=== PATIENT | female | born 1955 | race Hispanic/Latino ===

== ENCOUNTER 2023-01-12 11:51 | Emergency (ER) | payer OTHER ==
--- NOTE | 2023-01-12 12:34 | RAD REPORT ---
EXAM DESCRIPTION: CT - Head Brain Wo Cont - 01/12/2023 12:25 pm CLINICAL HISTORY: Dizziness COMPARISON: none TECHNIQUE: Computed axial tomography of the head was obtained. IV contrast was not requested. All CT scans are performed using dose optimization technique as appropriate and may include automated exposure control or mA/KV adjustment according to patient size. FINDINGS: An intracranial bleed is not seen The ventricles are normal in caliber No significant hypodense areas within the brain visualized No extra-axial fluid collection is noted. Small amount of fluid within the right maxillary sinus IMPRESSION: No acute intracranial abnormality is seen Small amount of fluid within the right maxillary sinus may indicate acute sinusitis If patient's symptoms persist MRI of the brain would be recommended
--- NOTE | 2023-01-12 12:44 | RAD REPORT ---
EXAM DESCRIPTION: Jesus Single View01/12/2023 12:30 pm CLINICAL HISTORY: Chest pain COMPARISON: none FINDINGS: The lungs appear clear of acute infiltrate. The heart is normal size IMPRESSION: No acute abnormalities displayed
[2023-01-12 12:51] LABS: Absolute Lymphocytes (CBC) 2.5 K/uL (0.7-4.9); Hematocrit 37.2 % (36.0-45.0); Lymphocytes % 37.6 % (15.3-44.8); MCV 85.9 fL (80-100); MPV 7.7 fL (7.6-11.3); RBC Red Blood Cell Count 4.34 M/uL (3.86-4.86)
[2023-01-12 13:09] LABS: Magnesium 2.3 mg/dL (1.6-2.4); Potassium 3.7 mEq/L (3.5-5.1); Troponin High Sensitivity 3.2 pg/mL (<58.9)
--- NOTE | 2023-01-12 13:15 | ER ---
Nurse's Notes [facility] Name: Sharmaine Franklin Age: 67 yrs Sex: Female : 1955 Arrival Date: 01/12/2023 Time: 11:51 Bed 8 Private MD: Diagnosis: Dizziness and giddiness;Orthostatic hypotension Presentation: 01/12 11:56 Chief complaint: Patient states: Dizziness on/off for the last 2 weeks, patient states nj1 she gets dizzy when she changes position, "take a few deep breaths and it goes away". Coronavirus screen: Vaccine status: Patient reports receiving the 2nd dose of the covid vaccine. Ebola Screen: Patient denies travel to an Ebola-affected area in the 21 days before illness onset. Initial Sepsis Screen: Does the patient meet any 2 criteria? No. Patient's initial sepsis screen is negative. Does the patient have a suspected source of infection? No. Patient's initial sepsis screen is negative. Risk Assessment: Do you want to hurt yourself or someone else? Patient reports no desire to harm self or others. Onset of symptoms was December 29, 2022. 11:56 Method Of Arrival: Ambulatory [facility] 11:56 Acuity: YANA 3 nj1 Triage Assessment: 13:19 General: Appears in no apparent distress. Behavior is calm, cooperative. Pain: Denies ap3 pain. Neuro: Level of Consciousness is awake, alert, obeys commands, Oriented to person, place, time, situation, Reports dizziness. Cardiovascular: Patient's skin is warm and dry. Respiratory: Airway is patent Respiratory effort is even, unlabored, Respiratory pattern is regular, symmetrical. Historical: - Allergies: 11:59 No Known Allergies; nj1 - Home Meds: 11:59 simvastatin 10 mg Oral tablet every evening [Active]; nj1 - PMHx: 11:59 Hypercholesterolemia; nj1 - PSHx: 11:59 Hysterectomy; nj1 - Immunization history:: Client reports receiving the 2nd dose of the Covid vaccine. - Social history:: Smoking status: Patient denies any tobacco usage or history of. Screenin:23 Abuse screen: Denies threats or abuse. Nutritional screening: No deficits noted. ap3 Tuberculosis screening: No symptoms or risk factors identified. Assessment: 13:01 Reassessment: Patient appears in no apparent distress at this time. Patient and/or vg1 family updated on plan of care and expected duration. Pain level reassessed. Patient is alert, oriented x 3, equal unlabored respirations, skin warm/dry/pink. denies dizziness at this time Patient states feeling better. Vital Signs: 11:56 BP 129 / 75; Pulse 82; Resp 18; Temp 98.9(O); Pulse Ox 98% ; Weight 64.41 kg; Height 5 nj1 ft. 2 in. ; Pain 0/10; 12:23 BP 117 / 68 Supine; sb4 12:24 BP 120 / 82 Sitting; sb4 12:24 BP 122 / 83 Standing; sb4 12:30 BP 129 / 83; Pulse 75; Resp 20; Pulse Ox 99% on R/A; vg1 13:29 BP 120 / 80; Pulse 76; Resp 16; Pulse Ox 98% on R/A; vg1 11:56 Body Mass Index 25.97 (64.41 kg, 157.48 cm) nj1 11:56 Pain Scale: Adult [facility] ED Course: 11:53 Patient arrived in ED. ts1 11:56 Ethel Castro PA-C is PHCP. sb4 11:56 Darin Villalba MD is Attending Physician. sb4 11:58 Triage completed. nj1 12:00 Arm band placed on right wrist. nj1 12:09 Jolanta Henderson, YESI is Primary Nurse. ap3 12:23 Patient has correct armband on for positive identification. Bed in low position. Call ap3 light in reach. Side rails up X 1. job coach on. Pulse ox on. NIBP on. 12:27 CT Head Brain wo Cont In Process Unspecified. EDMS 12:31 Chest Single View XRAY In Process Unspecified. EDMS 12:44 Basic Metabolic Panel Sent. mm9 12:44 CBC with Diff Sent. mm9 12:44 Magnesium Sent. mm9 12:44 Troponin High Sensitivity Sent. mm9 12:44 Initial lab(s) drawn, by me, sent to lab. EKG done, by ED staff, reviewed by Ethel Castro PA-C. Inserted saline lock: 20 gauge in left antecubital area, using aseptic technique. Blood collected. 12:45 Warm blanket given. Pillow given. Client placed on continuous cardiac and pulse mm9 oximetry monitoring. NIBP monitoring applied. 13:14 Almazan, Sharmaine, MD is Referral Physician. sb4 13:19 No provider procedures requiring assistance completed. ap3 13:29 IV discontinued, intact, bleeding controlled, No redness/swelling at site. Pressure vg1 dressing applied. Administered Medications: No medications were administered Medication: 13:19 VIS not applicable for this client. ap3 Outcome: 13:14 Discharge ordered by MD. sb4 13:29 Discharged to home ambulatory, with family. vg1 13:29 Condition: good 13:29 Discharge instructions given to patient, Instructed on discharge instructions, follow up and referral plans. Demonstrated understanding of instructions, follow-up care. 13:29 Patient left the ED. vg1 Signatures: Dispatcher [employer] EDJolanta Saldivar RN YESI ap3 Ana Cristina Baldwin RN RN vg1 Etehl Castro, PA-C PA-C sb4 Isabelle Echavarria mm9 Ann Marie Em RN RN nj1 Lucille Coleman, GURVINDER PAS ts1 Corrections: (The following items were deleted from the chart) 12:00 11:59 PSHx: None; nj1 nj1
--- NOTE | 2023-01-12 13:15 | EDPHYS ---
Physician Documentation [facility] Name: Sharmaine Franklin Age: 67 yrs Sex: Female : 1955 Arrival Date: 01/12/2023 Time: 11:51 Bed 8 Private MD: NICK Physician Darin Villalba HPI: 01/12 12:14 This 67 yrs old Female presents to ER via Ambulatory with complaints of sb4 Dizziness. 12:14 The patient presents with dizziness, feeling off balance. Onset: The symptoms/episode sb4 began/occurred 2 week(s) ago. Context:. Context: changing positions. Associated signs and symptoms: Pertinent positives: blurred vision, Pertinent negatives: abdominal pain, chest pain, confusion, diaphoresis, headache, nausea, shortness of breath, syncope, tingling. 67 year old female with history of hyperlipidemia presents with complaints of 2 weeks dizzy spells. She states that they occur typically when gets up from laying down. She denies any chest pain, shortness of breath, nausea, syncope, cardiac history. She states she can typically relieve the dizziness by taking deep breaths. Historical: - Allergies: 11:59 No Known Allergies; nj1 - Home Meds: 11:59 simvastatin 10 mg Oral tablet every evening [Active]; nj1 - PMHx: 11:59 Hypercholesterolemia; nj1 - PSHx: 11:59 Hysterectomy; nj1 - Immunization history:: Client reports receiving the 2nd dose of the Covid vaccine. - Social history:: Smoking status: Patient denies any tobacco usage or history of. ROS: 12:14 Constitutional: Negative for fever, chills, and weight loss, Eyes: Negative for injury, sb4 pain, redness, and discharge, ENT: Negative for injury, pain, and discharge, Cardiovascular: Negative for chest pain, palpitations, and edema, Respiratory: Negative for shortness of breath, cough, wheezing, and pleuritic chest pain, Abdomen/GI: Negative for abdominal pain, nausea, vomiting, diarrhea, and constipation, MS/Extremity: Negative for injury and deformity, Skin: Negative for injury, rash, and discoloration, Psych: Negative for depression, anxiety, suicide ideation, homicidal ideation, and hallucinations. 12:14 Neuro: Positive for dizziness, Negative for gait disturbance, headache, loss of consciousness, numbness, seizure activity, syncope. Exam: 12:14 Constitutional: This is a well developed, well nourished patient who is awake, alert, sb4 and in no acute distress. Head/Face: Normocephalic, atraumatic. Eyes: Extra-ocular motions intact. Periorbital areas with no swelling, redness, or edema. ENT: Mucous membranes moist. Cardiovascular: Regular rate and rhythm with a normal S1 and S2. Respiratory: Lungs have equal breath sounds bilaterally, clear to auscultation and percussion. No rales, rhonchi or wheezes noted. No increased work of breathing, no retractions or nasal flaring. Abdomen/GI: Soft, non-tender, no distension. Skin: Warm, dry with normal turgor. Normal color with no rashes, no lesions, and no evidence of cellulitis. MS/ Extremity: Pulses equal, no cyanosis. Neurovascular intact. Full, normal range of motion. Neuro: Awake and alert, GCS 15, oriented to person, place, time, and situation. Cranial nerves II-XII grossly intact. Motor strength 5/5 in all extremities. Sensory grossly intact. Cerebellar exam normal. Normal gait. Vital Signs: 11:56 BP 129 / 75; Pulse 82; Resp 18; Temp 98.9(O); Pulse Ox 98% ; Weight 64.41 kg; Height 5 nj1 ft. 2 in. ; Pain 0/10; 12:23 BP 117 / 68 Supine; sb4 12:24 BP 120 / 82 Sitting; sb4 12:24 BP 122 / 83 Standing; sb4 12:30 BP 129 / 83; Pulse 75; Resp 20; Pulse Ox 99% on R/A; vg1 13:29 BP 120 / 80; Pulse 76; Resp 16; Pulse Ox 98% on R/A; vg1 11:56 Body Mass Index 25.97 (64.41 kg, 157.48 cm) nj1 11:56 Pain Scale: Adult nj1 MDM: 11:56 Patient medically screened. sb4 12:14 Differential diagnosis: cardiac arrhythmia, CVA, generalized weakness, head injury, sb4 hyperventilation, hypovolemia, idiopathic dizziness, near-syncope, syncope, TIA, vertigo. 13:19 Data reviewed: vital signs, nurses notes, lab test result(s), cardiac enzymes, CBC, sb4 electrolytes, EKG, radiologic studies, CT scan, plain films. Data reviewed: and as a result, I will discharge patient. Consideration of Admission/Observation Escalation of care including admission/observation considered. Independent interpretation of the following test(s) in the Emergency Department EKG: See my EKG interpretation above X-Ray: My interpretation is my interpretation of the chest xray images are no consolidation, no rib fracture, no pulmonary edema. Counseling: I had a detailed discussion with the patient and/or guardian regarding: the historical points, exam findings, and any diagnostic results supporting the discharge/admit diagnosis, lab results, radiology results, to return to the emergency department if symptoms worsen or persist or if there are any questions or concerns that arise at home. 01/12 12:11 Order name: Basic Metabolic Panel; Complete Time: 13:10 sb4 01/12 12:11 Order name: CBC with Diff; Complete Time: 12:54 sb4 01/12 12:11 Order name: Magnesium; Complete Time: 13:10 sb4 01/12 12:11 Order name: Troponin High Sensitivity; Complete Time: 13:10 sb4 01/12 12:11 Order name: CT Head Brain wo Cont; Complete Time: 12:36 sb4 01/12 12:11 Order name: Chest Single View XRAY; Complete Time: 12:45 sb4 01/12 12:11 Order name: EKG; Complete Time: 12:12 sb4 01/12 12:11 Order name: Cardiac monitoring; Complete Time: 12:32 sb4 01/12 12:11 Order name: EKG - Nurse/Tech; Complete Time: 12:32 sb4 01/12 12:11 Order name: IV Saline Lock; Complete Time: 12:44 sb4 01/12 12:11 Order name: Labs collected and sent; Complete Time: 12:44 sb4 01/12 12:11 Order name: O2 Per Protocol; Complete Time: 12:20 sb4 01/12 12:11 Order name: O2 Sat Monitoring; Complete Time: 12:20 sb4 01/12 12:11 Order name: Orthostatics; Complete Time: 12:22 sb4 EC:55 Rate is 67 beats/min. Rhythm is regular, Normal Sinus Rhythm. QRS [place] is Normal. [place] sb4 interval is normal at 158 msec. QRS interval is normal at 80 msec. QT interval is normal at 402 msec. T waves are Normal. Clinical impression: Normal ECG. Interpreted by me. Reviewed by me. Administered Medications: No medications were administered Disposition Summary: 01/12/23 13:14 Discharge Ordered Location: Home sb4 Problem: an ongoing problem sb4 Symptoms: have improved sb4 Condition: Stable sb4 Diagnosis - Dizziness and giddiness sb4 - Orthostatic hypotension sb4 Followup: sb4 - With: Sharmaine Almazan MD - When: 1 week - Reason: Further diagnostic work-up, Recheck today's complaints, Re-evaluation by your physician Discharge Instructions: - Discharge Summary Sheet sb4 - Orthostatic Hypotension sb4 - Dizziness, [id number]-[id number] sb4 Forms: - Medication Reconciliation Form sb4 - Thank You Letter sb4 - Antibiotic Education sb4 - Prescription Opioid Use sb4 - [email or web address] sb4 Signatures: Dispatcher [employer] Ethel Mcclendon PA-C PA-C sb4 Ann Marie Em RN RN nj1 Corrections: (The following items were deleted from the chart) 12:00 11:59 PSHx: None; nj1 nj1
[2023-01-12 14:22] VITALS: TEMP 98.9
[2023-01-12 14:27] VITALS: BP 120/80; O2SAT 98
--- NOTE | 2023-01-14 17:16 | EKG ---
Test Date: 2023-01-12 Test Time: 12:51:27 Direct Care Counselor: AKILA MEASUREMENT RESULTS: Intervals: Rate: 67 SD: 158 QRSD: 80 QT: 402 QTc: 424 [place]: P: 69 SD: 158 QRS: 50 T: 42 INTERPRETIVE STATEMENTS: Normal sinus rhythm Normal ECG No previous ECG available for comparison Electronically Signed On 01-14-23 17:13:27 CDT by Rex Lester
== END 2023-01-12 13:29 | disposition home or self-care (01) ==
LOC: ER 11:51
DX: R42 Dizziness and giddiness (principal); I95.1 Orthostatic hypotension; E78.00 Pure hypercholesterolemia, unspecified
CPT/HCPCS: 36415; 70450; 71045; 80048; 83735; 84484; 85025; 93005; 99284

== ENCOUNTER 2023-05-08 04:30 | Emergency (ER) | payer OTHER ==
--- OUTSIDE RECORDS SUMMARY | 2023-05-08 04:40 | XMS REPORT | Continuity of Care Document ---
:[address] [facility] t Address [address] [place] [id number] Care Team Providers Name Role Phone [email or web address] Attending Clinician Unavailable [email or web address] Admitting Clinician Unavailable Problems This patient has no known problems. Allergies, Adverse Reactions, Alerts This patient has no known allergies or adverse reactions. Medications This patient has no known medications. Procedures This patient has no known procedures. Encounters Start End Encounter Admission Attending Care Care Encounter Source Date/Time Date/Time Type Type Clinicians Facility Department ID 2023-05-03 2023-05-03 Outpatient [email or web address] PRIV PRIV [id number] [facility] 00:00:00 00:00:00 diyala_S [id number] Medic al Results This patient has no known results.
--- NOTE | 2023-05-08 05:06 | EDPHYS ---
Physician Documentation [facility] Name: Sharmaine Franklin Age: 67 yrs Sex: Female : 1955 Arrival Date: 05/08/2023 Time: 04:30 Bed IW1 Private MD: ED Physician King Marshall HPI: 05/08 04:47 This 67 yrs old Female presents to ER via Unassigned with complaints of Sore sp4 Throat, laryngitis. 05:02 67-year-old female presents with acute onset of sore throat, loss of voice and cough sp4 starting 3 days ago. Patient denies fever or vomiting. Historical: - Allergies: 04:55 No Known Allergies; jj7 - PMHx: 04:55 Hypercholesterolemia; jj7 - PSHx: 04:55 hysterectomy; jj7 - Immunization history:: Adult Immunizations up to date, Client reports receiving the 2nd dose of the Covid vaccine. - Social history:: Smoking status: Patient denies any tobacco usage or history of. Patient/guardian denies using alcohol, street drugs. - Family history:: not pertinent. ROS: 05:02 Constitutional: Negative for fever, chills, and weight loss, ENT: Positive sore throat sp4 positive hoarseness positive cough 05:02 All other systems are negative, Exam: 05:02 Constitutional: This is a well developed, well nourished patient who is awake, alert, sp4 and in no acute distress. Head/Face: Normocephalic, atraumatic. Eyes: Pupils equal round and reactive to light, extra-ocular motions intact. Lids and lashes normal. Conjunctiva and sclera are not injected. Cornea within normal limits. Periorbital areas with no swelling, redness, or edema. ENT: Nares patent. No nasal discharge, no septal abnormalities noted. Tympanic membranes are normal and external auditory canals are clear. Oropharynx with diffuse posterior pharyngeal redness without significant exudate, positive hoarse voice Neck: Trachea midline, no thyromegaly or masses palpated, and no cervical lymphadenopathy. Supple, full range of motion without nuchal rigidity, or vertebral point tenderness. Chest/axilla: Normal chest wall appearance and motion. Nontender with no deformity. No lesions are appreciated. Cardiovascular: Regular rate and rhythm with a normal S1 and S2. No gallops, murmurs, or rubs. Normal PMI, no JVD. No pulse deficits. Respiratory: Lungs have equal breath sounds bilaterally, clear to auscultation and percussion. No rales, rhonchi or wheezes noted. No increased work of breathing, no retractions or nasal flaring. Abdomen/GI: Soft, non-tender, with normal bowel sounds. No distension or tympany. No guarding or rebound. No evidence of tenderness throughout. Back: No spinal tenderness. No costovertebral tenderness. Skin: Warm, dry with normal turgor. Normal color with no rashes, no lesions, and no evidence of cellulitis. MS/ Extremity: Pulses equal, no cyanosis. Neurovascular intact. Full, normal range of motion. Neuro: Awake and alert, GCS 15, oriented to person, place, time, and situation. Cranial nerves II-XII grossly intact. Motor strength 5/5 in all extremities. Sensory grossly intact. Psych: Awake, alert, with orientation to person, place and time. Behavior, mood, and affect are within normal limits Vital Signs: 04:53 BP 99 / 74; Pulse 81; Resp 20; Temp 98.2; Pulse Ox 99% ; Weight 60.78 kg; Height 0 ft. jj7 1 in. ; 04:53 Body Mass Index 52653.55 (60.78 kg, 5 cm) j7 MDM: 05:00 Patient medically screened. sp4 05:02 Differential diagnosis: bronchitis, echovirus infection, penny-hadley virus, group A sp4 strep tonsillitis, influenza. Data reviewed: vital signs, nurses notes, old medical records. ED course: Patient has some degree of laryngitis and pharyngitis. Also some signs of bronchitis. Will cover with Zithromax also with advised ibuprofen, as needed Benadryl, as needed dextromethorphan.. Administered Medications: 05:25 Drug: Dextromethorphan-Guaifenesin PO Liquid 10 mg-100 mg/5 mL 10 ml PO once Route: PO; jj7 05:28 Follow up: Response: No adverse reaction jj7 05:25 Drug: AZITHromycin PO 500 mg PO once Route: PO; j7 :28 Follow up: Response: No adverse reaction jj7 05:25 Drug: Ibuprofen PO 600 mg PO once Route: PO; jj7 05:28 Follow up: Response: No adverse reaction jj7 05:25 Drug: diphenhydrAMINE PO 25 mg PO once Route: PO; j7 05:28 Follow up: Response: No adverse reaction j7 05:25 Drug: predniSONE PO 60 mg PO once Route: PO; j7 05:28 Follow up: Response: No adverse reaction jj7 Disposition Summary: 05/08/23 05:05 Discharge Ordered Notes: Location: Home sp4 Problem: new sp4 Symptoms: have improved sp4 Condition: Stable sp4 Diagnosis - Acute laryngitis sp4 - Acute bronchitis, unspecified sp4 Followup: sp4 - With: Private Physician - When: 5 - 6 days - Reason: Recheck today's complaints Discharge Instructions: - Discharge Summary Sheet sp4 - Acute Bronchitis, Adult sp4 Forms: - Patient Portal Instructions sp4 Prescriptions: - dextromethorphan-guaifenesin 10-100 mg/5 mL Oral syrup - administer 10 milliliter ORAL route every 6 hours PRN cough; 120 milliliter; sp4 Refills: 0, Product Selection Permitted - Ibuprofen 600 mg Oral Tablet - take 1 tablet ORAL route every 6 hours As needed take with food; 30 tablet; sp4 Refills: 0, Product Selection Permitted - Zithromax Z-Jordi 250 mg Oral Tablet - take 1 tablet ORAL route as directed for 5 days Day 1 - take two (2) tablets sp4 one time. Day 2, 3, 4 , 5 take one (1) tablet once daily.; 6 tablet; Refills: 0, Product Selection Permitted Signatures: Whitney Brannon RN RN jj7 King Marshall MD MD sp4
--- NOTE | 2023-05-08 05:06 | ER ---
Nurse's Notes [facility] Name: Sharmaine Franklin Age: 67 yrs Sex: Female : 1955 Arrival Date: 05/08/2023 Time: 04:30 Bed IW1 Private MD: Diagnosis: Acute laryngitis;Acute bronchitis, unspecified Presentation: 05/08 04:53 Chief complaint: Patient states: SORE THROAT STARTED YESTERDAY AND COUGH. Coronavirus jj7 screen: cough unrelated to allergies, sore throat. Ebola Screen: No symptoms or risks identified at this time. Initial Sepsis Screen: Does the patient meet any 2 criteria? No. Patient's initial sepsis screen is negative. Does the patient have a suspected source of infection? No. Patient's initial sepsis screen is negative. Risk Assessment: Do you want to hurt yourself or someone else? Patient reports no desire to harm self or others. Onset of symptoms was May 05, 2023. 04:53 Method Of Arrival: Ambulatory j7 04:53 Acuity: YANA 4 jj7 Triage Assessment: 04:55 General: Appears in no apparent distress. uncomfortable, Behavior is calm, cooperative, jj7 appropriate for age. EENT: Reports SORE THROAT AND COUGH. Historical: - Allergies: 04:55 No Known Allergies; jj7 - PMHx: 04:55 Hypercholesterolemia; jj7 - PSHx: 04:55 hysterectomy; jj7 - Immunization history:: Adult Immunizations up to date, Client reports receiving the 2nd dose of the Covid vaccine. - Social history:: Smoking status: Patient denies any tobacco usage or history of. Patient/guardian denies using alcohol, street drugs. - Family history:: not pertinent. Screenin:59 [facility] ED Fall Risk Assessment (Adult) History of falling in the last 3 months, jj7 including since admission No falls in past 3 months (0 pts) Confusion or Disorientation No (0 pts) Intoxicated or Sedated No (0 pts) Impaired Gait No (0 pts) Mobility Assist Device Used No (0 pt) Altered Elimination No (0 pt) Score/Fall Risk Level 0 - 2 = Low Risk Oriented to surroundings, Maintained a safe environment. Abuse screen: Denies threats or abuse. Nutritional screening: No deficits noted. Tuberculosis screening: No symptoms or risk factors identified. Assessment: 04:59 Reassessment: SEE TRIAGE ASSESSMENT. Pain:. EENT: Reports. jj7 05:26 Respiratory: Airway is patent Respiratory effort is even, unlabored, Breath sounds are jj7 clear bilaterally. 05:26 EENT: Throat is clear. jj7 Vital Signs: 04:53 BP 99 / 74; Pulse 81; Resp 20; Temp 98.2; Pulse Ox 99% ; Weight 60.78 kg; Height 0 ft. jj7 1 in. ; 04:53 Body Mass Index 09702.55 (60.78 kg, 5 cm) jj7 ED Course: 04:35 Patient arrived in ED. gm2 04:47 King Marshall MD is Attending Physician. sp4 04:55 Triage completed. jj7 04:55 Arm band placed on right wrist. jj7 05:26 No provider procedures requiring assistance completed. Patient did not have IV access jj7 during this emergency room visit. 05:27 Patient has correct armband on for positive identification. Provided Education on: jj7 ANTIBIOTIC PURPOSE. Administered Medications: 05:25 Drug: Dextromethorphan-Guaifenesin PO Liquid 10 mg-100 mg/5 mL 10 ml PO once Route: PO; jj7 05:28 Follow up: Response: No adverse reaction jj7 05:25 Drug: AZITHromycin PO 500 mg PO once Route: PO; jj7 05:28 Follow up: Response: No adverse reaction jj7 05:25 Drug: Ibuprofen PO 600 mg PO once Route: PO; jj7 05:28 Follow up: Response: No adverse reaction jj7 05:25 Drug: diphenhydrAMINE PO 25 mg PO once Route: PO; jj7 05:28 Follow up: Response: No adverse reaction jj7 05:25 Drug: predniSONE PO 60 mg PO once Route: PO; jj7 05:28 Follow up: Response: No adverse reaction jj7 Medication: 04:59 VIS not applicable for this client. jj7 Outcome: 05:05 Discharge ordered by . sp4 05:26 Discharged to home ambulatory, jj7 05:26 Condition: good 05:26 Discharge instructions given to patient, Instructed on discharge instructions, medication usage, Demonstrated understanding of instructions, medications, Prescriptions given X 2, 05:27 Patient left the ED. jj7 Signatures: Whitney Brannon RN RN jj7 King Marshall MD MD sp4 Mariia Ann 2
[2023-05-08 05:32] VITALS: BP 99/74; TEMP 98.2; O2SAT 99
[2023-05-08] MEDS ORDERED: predniSONE 20 MG TAB ONE (05:34)
[2023-05-08] MEDS ORDERED: AZITHROMYCIN 250 MG TAB ONE (05:34)
[2023-05-08] MEDS ORDERED: DIPHENHYDRAMINE 25 MG TAB/CAP ONE (05:34)
[2023-05-08] MEDS ORDERED: IBUPROFEN 200 MG TAB PO ONE (05:34)
[2023-05-08] MEDS ORDERED: GUAIFENESIN/DM 5 ML UCUP ONE (05:35)
== END 2023-05-08 05:27 | disposition home or self-care (01) ==
LOC: ER 04:30
DX: J20.9 Acute bronchitis, unspecified (principal)
CPT/HCPCS: 99283; J7512

== ENCOUNTER → 2023-09-25 | Day surgery (SDC) | payer OTHER ==
--- NOTE | 2023-09-20 09:25 | RAD REPORT ---
EXAM DESCRIPTION: Jesus Paulino (2 Views)09/20/2023 9:16 am CLINICAL HISTORY: Preop for knee surgery COMPARISON: 2022 FINDINGS: The lungs appear clear of acute infiltrate. The heart is normal size IMPRESSION: No acute abnormalities displayed
[2023-09-20 09:35] LABS: PT Prothrombin Time 10.6 SECONDS (9.5-12.5); Protime INR 0.96
[2023-09-20 09:39] LABS: Anion Gap 5.8 mEq/L (5.0-15.0); Potassium 3.8 mEq/L (3.5-5.1)
[2023-09-20 09:40] LABS: Absolute Eosinophils 0.2 K/uL (0-0.5); Absolute Lymphocytes (CBC) 2.5 K/uL (0.7-4.9); Absolute Monocytes 0.3 K/uL (0.1-1.3); Basophils % 0.7 % (0-1.3); Eosinophils % 2.5 % (0-4.4); Hemoglobin 12.6 g/dL (12.0-15.0); Lymphocytes % 41.5 % (15.3-44.8); MCH 28.8 pg (27.0-35.0); MCHC 33.2 g/dL (32.0-36.0); MCV 86.7 fL (80-100); Monocytes % 4.6 % (3.3-12.3); Neutrophils % 50.7 % (41.7-73.7); Nucleated Red Blood Cells % 0.1 % (0-0); Platelets 285 thou/uL (152-406); RBC Red Blood Cell Count 4.37 M/uL (3.86-4.86)
--- NOTE | 2023-09-20 17:20 | EKG ---
Test Date: 2023-09-20 Test Time: 09:06:33 [employer] Dough Mixer: LEANDRO MEASUREMENT RESULTS: Intervals: Rate: 71 IL: 154 QRSD: 76 QT: 396 QTc: 430 [place]: P: 60 IL: 154 QRS: 18 T: 32 INTERPRETIVE STATEMENTS: Normal sinus rhythm Low voltage QRS Borderline ECG Compared to ECG 01/12/2023 12:51:27 Low QRS voltage now present Electronically Signed On 09-20-23 17:19:43 CDT by Rex Lester
[~2023-09-25] MED LIST: FENTANYL CITR 100 MCG/2 ML ONE; KETOROLAC 30 MG/ML INJ ONE; LIDOCAINE 2% MPF 5 ML VIAL ONE; MIDAZOLAM HCL 2 MG/2 ML INJ ONE; NS 0.9% VIAL 10 ML ONE; ONDANSETRON 4 MG/2 ML VIAL ONE; Phenylephrine HCl 10 MG/ML 1 ML VIAL ONE; dexAMETHasone 10 MG/ML VIAL ONE; propofoL 200 MG/20 ML VIAL IV ONE
[2023-09-25] MEDS: Ringers Lactate 1,000 ML IV ONE (07:20)
[2023-09-25] MEDS: CEFAZOLIN SODIUM 1 GM/VIAL ONE (08:03)
[2023-09-25] MEDS: BUPIVACAINE 0.25% PF 30 ML VIAL ONE (08:50)
--- NOTE | 2023-09-25 09:33 | P.BOP ---
Preoperative diagnosis: right knee medial meniscus tear Postoperative diagnosis: same Primary procedure: right knee arthroscopic partial medial meniscectomy Sluice Tender: NONE,NONE Estimated blood loss: 3 cc Specimen: none Findings: see dictation Anesthesia: General Complications: None Implants: none Fluids & blood products: per anesthesia record; TT: 32 mins @ 250 mmHg Transferred to: Recovery Room Condition: Good
[2023-09-25] MEDS: ONDANSETRON 4 MG/2 ML VIAL ONE (09:38)
--- NOTE | 2023-09-25 10:43 | OP ---
Date of Procedure: 09/25/2023 Surgeon: Uday Parks MD Preoperative Diagnosis: Right knee medial meniscus tear. Postoperative Diagnosis: Right knee medial meniscus tear. Procedure Performed: Right knee arthroscopic partial medial meniscectomy. Anesthesia: General, LMA. Fluids: Per Anesthesia record. Estimated Blood Loss: 3 cc. Complications: None. Implants: None. Tourniquet Time: 32 minutes at 250 mmHg. Indication For Procedure: Sharmaine is a 68-year-old female who presented my clinic with signs, sympt oms, and MRI findings consistent with right knee medial meniscus tear. The patient had significant p ain and symptoms that interfere with her activities of daily living. I discussed the patient at [facility] risks, benefits associated with operative and nonoperative treatment measures. She expressed unde rstanding and elected to proceed with operative treatment. Description Of Procedure: After informed consent was obtained, the patient was identified in the pre operative holding area. Right lower extremity was marked. The patient was then brought back to the operating room, transferred the operative table in supine fashion, placed under general LMA anesthesi a. The right lower extremity was then prepped and draped in usual sterile fashion. A time-out was i nitiated. Correct patient and procedure were confirmed and identified. The patient did receive preo perative prophylactic antibiotics. The right lower extremity was exsanguinated using an Esmarch. Th e tourniquet was inflated to 250 mmHg. Standard anteromedial and anterolateral portals were created. The arthroscope was brought into the anterolateral portal. Diagnostic arthroscopy was performed. There was no significant chondromalacia noted within the patellofemoral joint. The arthroscope was t hen brought out the medial and lateral gutters. There were no loose bodies found in the gutters. Th e arthroscope was then brought in the medial compartment. The patient was noted to have a complex te ar of the posterior horn and body of the medial meniscus. Partial medial meniscectomy was performed using meniscal biters and arthroscopic shaver to smooth meniscal orders. 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 The arthroscope was then brought out o f the intercondylar notch. The patient was noted to have intact ACL and PCL, which were stable to pr obe. The arthroscope was then brought to the lateral compartment. The patient was noted to have tal ingris cartilage of the lateral femoral condyle, lateral tibial plateau without significant lateral me niscus tear. Arthroscopic instruments were then removed without complication. Wounds were then irri gated thoroughly with normal saline. Skin was approximated using 4-0 Monocryl. Sterile dressings we re applied. Tourniquet was let down. The patient was awakened and transferred to PACU in stable con dition. Postoperative Plan: The patient will be weightbearing as tolerated. She will begin physical therapy next week for post-meniscectomy protocol. She will follow up in clinic in 1 week for wound check. CV/MODL Voice ID: [id number] Report ID: [id number]
[2023-09-25 10:45] VITALS: BP 125/78; TEMP 97.3; O2SAT 96
== END ==
LOC: OR 07:01
PROVIDERS: ATTEND Orthopaedic Surgery Sports Medicine
PROC: 0SBC4ZZ Excision of Right Knee Joint, Percutaneous Endoscopic Approach (ICD-10-PCS; principal; 2023-09-25 08:00)
DX: S83.241A Other tear of medial meniscus, current injury, right knee, initial encounter (principal)
CPT/HCPCS: 93005; 85025; 80048; 36415; 85610; 85730; 71046; 29881; A4216 ×2; J2704; J2371; J2001; J2250; J3010; J1100; J2405 ×2; J7120; J0690

== ENCOUNTER 2024-03-07 12:56 | Emergency (ER) | payer OTHER ==
--- OUTSIDE RECORDS SUMMARY | 2024-03-07 13:00 | XMS REPORT | Continuity of Care Document ---
Author Name Unknown Address [address] [place] [address] [facility] Address [address] [place] [address] Care Team Providers Care Plaster Block Layer Name Role Phone Zay Valdivia DO Primary Care Physician + Zay Valdivia Attending Clinician Unavailable MARINO SIFUENTES Attending Clinician Unavail able Selpavant DPMarino Moulton Attending Clinician [phone] [email or web address] Attending Clinician Unavaila ble [email or web address] Admitting Clinician Unavaila ble Payers Payer Name Policy Type Policy Number Effective Date Expiration Date Source MEDICARE PART A AND B Medicare [id number] 2024 00:00:00 [employer] SENIOR SUPPLEMENT Supp [id number] 2024 00:00:00 [employer] SENIOR SUPPLEMENT Supp [id number] 2023 00:00:00 [employer] Senior Supplemental 53 [id number] 2020 00:00:00 [facility] Problems Condition Name Condition Details Condition Category Status Onset Date Resolution Date Last Treatment Date Treating Clinician Comments Source [id number] Overweight (BMI 25.0-29.9) Problem [facility] [id number] Iron deficiency anemia, unspecifie d iron deficiency anemia type Problem [facility] Pure hyperchole sterolemia Pure hyperchole sterolemia Problem [facility] [id number] Left hip pain Problem [facility] [id number] Prediabete s Problem [facility] [id number] Mixed hyperlipid emia Problem [facility] [id number] Tear of right rotator cuff, unspecifie d tear extent, unspecifie d whether traumatic Problem [facility] [id number] Insulin resistance Problem [facility] [id number] Right thigh pain Problem [facility] Allergies, Adverse Reactions, Alerts Allergy Name Allergy Type Status Severity Reaction(s) Onset Date Inactive Date Treating Clinician Comments Source NO KNOWN ALLERGIE S SYSTEMIC Active MHEOUT NO KNOWN ALLERGIE S SYSTEMIC Active MHEOUT NO KNOWN ALLERGIE S SYSTEMIC Active MHEOUT NO KNOWN ALLERGIE S SYSTEMIC Active MHEOUT NO KNOWN ALLERGIE S SYSTEMIC Active MHEOUT ALLERGIE S NOT ON FILE SYSTEMIC Active MHEOUT ALLERGIE S NOT ON FILE SYSTEMIC Active MHEOUT ALLERGIE S NOT ON FILE SYSTEMIC Active MHEOUT NO KNOWN ALLERGIE S SYSTEMIC Active MHEOUT NO KNOWN ALLERGIE S SYSTEMIC Active MHEOUT NO KNOWN ALLERGIE S SYSTEMIC Active MHEOUT NO KNOWN ALLERGIE S SYSTEMIC Active MHEOUT NO KNOWN ALLERGIE S SYSTEMIC Active MHEOUT NO KNOWN ALLERGIE S SYSTEMIC Active MHEOUT Social History Social Habit Start Date Stop Date Quantity Comments Source Gender identity 2023-09-29 14:29:11 Identifies as female gender (finding) [facility] History of Tobacco Use [facility] Sex Assigned At [facility] Sexual orientation [facility] Smoking Status Start Date Stop Date Source Tobacco smoking consumption unknown [facility] Never Smoker [facility] Medications Ordered Medication Name Filled Medication Name Start Date Stop Date Current Medication? Ordering Clinician Indication Dosage Frequency Signature (SIG) Comments Components Source B-12 1000 MCG B-12 1000 MCG No B-12 1000 MCG Simvastatin 5 MG Simvastatin 5 MG No 1{table t_in_th e_eveni ng} Simvastati n 5 MG Zinc 30 MG Zinc 30 MG No 1{ capsu le} QD Zinc 30 MG Centrum Silver - Centrum Silver - No Centrum Silver - Probiotic b10/ x4 Probiotic b10/ x4 No 1{capsu le} QD Probiotic b10/ x4 Fish Oil 1200 MG Fish Oil 1200 MG No 1{capsu le} QD Fish Oil 1200 MG Immunizations Ordered Immunization Name Filled Immunization Name Date Status Comments Source Comirnaty COVID 19 Vaccine Comirnaty COVID 19 Vaccine Unknown Completed [facility] Arexvy Arexvy Unknown Completed [facility] Prevnar 20 (PCV20) Prevnar 20 (PCV20) Unknown Completed [facility] Fluad (aIIV4) - SDS - 0.5mL Fluad (aIIV4) - SDS - 0.5mL Unknown Completed [facility] FluAD FluAD Unknown Completed [facility] Flucelvax (ccIIV4) - SDS - 0.5mL Flucelvax (ccIIV4) - SDS - 0.5mL Unknown Completed [facility] ProQuad (MMRV) ProQuad (MMRV) Unknown [facility] Com[facility]naty COVID 19 Vaccine Unknown Completed [facility] Arexvy Arexvy Unknown Completed [facility] Prevnar 20 (PCV20) Prevnar 20 (PCV20) Unknown Completed [facility] Fluad (aIIV4) - SDS - 0.5mL Fluad (aIIV4) - SDS - 0.5mL Unknown Completed [facility] FluAD FluAD Unknown Completed [facility] Flucelvax (ccIIV4) - SDS - 0.5mL Flucelvax (ccIIV4) - SDS - 0.5mL Unknown Completed [facility] ProQuad (MMRV) ProQuad (MMRV) Unknown [facility] Comirnaty COVID 19 Vaccine Unknown Completed [facility] Arexvy Arexvy Unknown Completed [facility] Prevnar 20 (PCV20) Prevnar 20 (PCV20) Unknown Completed [facility] Fluad (aIIV4) - SDS - 0.5mL Fluad (aIIV4) - SDS - 0.5mL Unknown Completed [facility] FluAD FluAD Unknown Completed [facility] Flucelvax (ccIIV4) - SDS - 0.5mL Flucelvax (ccIIV4) - SDS - 0.5mL Unknown Completed [facility] ProQuad (MMRV) ProQuad (MMRV) Unknown Completed [facility] Comirnat COVID 19 Vaccine Comirnaty COVID 19 Vaccine Unknown Completed [facility] Arexvy Arexvy Unknown Completed [facility] Prevnar 20 (PCV20) Prevnar 20 (PCV20) Unknown Completed [facility] Fluad (aIIV4) - SDS - 0.5mL Fluad (aIIV4) - SDS - 0.5mL Unknown Completed [facility] FluAD FluAD Unknown Completed [facility] Flucelvax (ccIIV4) - SDS - 0.5mL Flucelvax (ccIIV4) - SDS - 0.5mL Unknown Completed [facility] ProQuad (MMRV) ProQuad (MMRV) Unknown Completed [facility] Comirnaty COVID 19 Vaccine Comirnaty COVID 19 Vaccine Unknown Completed [facility] Arexvy Arexvy Unknown Completed [facility] Prevnar 20 (PCV20) Prevnar 20 (PCV20) Unknown Completed [facility] Fluad (aIIV4) - SDS - 0.5mL Fluad (aIIV4) - SDS - 0.5mL Unknown Completed [facility] FluAD FluAD Unknown Completed [facility] Flucelvax (ccIIV4) - SDS - 0.5mL Flucelvax (ccIIV4) - SDS - 0.5mL Unknown Completed [facility] ProQuad (MMRV) ProQuad (MMRV) Unknown Completed [facility] Comirnaty COVID 19 Vaccine Comirnaty COVID 19 Vaccine Unknown Completed [facility] Arexvy Arexvy Unknown Completed [facility] Prevnar 20 (PCV20) Prevnar 20 (PCV20) Unknown Completed [facility] Fluad (aIIV4) - SDS - 0.5mL Fluad (aIIV4) - SDS - 0.5mL Unknown Completed [facility] FluAD FluAD Unknown Completed [facility] Flucelvax (ccIIV4) - SDS - 0.5mL Flucelvax (ccIIV4) - SDS - 0.5mL Unknown Completed [facility] ProQuad (MMRV) ProQuad (MMRV) Unknown Completed [facility] Comirnaty COVID 19 Vaccine Comirnaty COVID 19 Vaccine Unknown Completed [facility] Arexvy Arexvy Unknown Completed [facility] Prevnar 20 (PCV20) Prevnar 20 (PCV20) Unknown Completed [facility] Fluad (aIIV4) - SDS - 0.5mL Fluad (aIIV4) - SDS - 0.5mL Unknown Completed [facility] FluAD FluAD Unknown Completed [facility] Flucelvax (ccIIV4) - SDS - 0.5mL Flucelvax (ccIIV4) - SDS - 0.5mL Unknown Completed [facility] ProQuad (MMRV) ProQuad (MMRV) Unknown Completed [facility] Comirnaty COVID 19 Vaccine Comirnaty COVID 19 Vaccine Unknown Completed [facility] Arexvy Arexvy Unknown Completed [facility] Prevnar 20 (PCV20) Prevnar 20 (PCV20) Unknown Completed [facility] Fluad (aIIV4) - SDS - 0.5mL Fluad (aIIV4) - SDS - 0.5mL Unknown Completed [facility] FluAD FluAD Unknown Completed [facility] Flucelvax (ccIIV4) - SDS - 0.5mL Flucelvax (ccIIV4) - SDS - 0.5mL Unknown Completed [facility] ProQuad (MMRV) ProQuad (MMRV) Unknown Completed [facility] Comirnaty COVID 19 Vaccine Comirnaty COVID 19 Vaccine Unknown Completed [facility] Arexvy Arexvy Unknown Completed [facility] Prevnar 20 (PCV20) Prevnar 20 (PCV20) Unknown Completed [facility] Fluad (aIIV4) - SDS - 0.5mL Fluad (aIIV4) - SDS - 0.5mL Unknown Completed [facility] FluAD FluAD Unknown Completed [facility] Flucelvax (ccIIV4) - SDS - 0.5mL Flucelvax (ccIIV4) - SDS - 0.5mL Unknown Completed [facility] ProQuad (MMRV) ProQuad (MMRV) Unknown Completed [facility] Vital Signs Vital Name Observation Time Observation Value Comments S ource height 2024-02-04 09:15:00 61 [in_i] Commo n [facility] weight 2024-02-04 09:15:00 142 [lb_av] Comm on [facility] temperature 2024-02-04 09:15:00 98.0 [degF] Com mon [facility] bmi 2024-02-04 09:15:00 26.83 kg/m2 Comm on [facility] blood pressure systolic 2024-02-04 09:15:00 134 mm[Hg] Common [facility] blood pressure diastolic 2024-02-04 09:15:00 74 mm[Hg] [facility] height 2023-12-24 10:15:00 61 [in_i] Commo n [facility] weight 2023-12-24 10:15:00 142.2 [lb_av] Co mmon [facility] temperature 2023-12-24 10:15:00 98.2 [degF] Com mon [facility] bmi 2023-12-24 10:15:00 26.87 kg/m2 Comm on [facility] blood pressure systolic 2023-12-24 10:15:00 136 mm[Hg] [facility] blood pressure diastolic 2023-12-24 10:15:00 67 mm[Hg] Common [facility] height 2023-11-14 13:30:00 61 [in_i] Commo n [facility] weight 2023-11-14 13:30:00 135 [lb_av] Comm on [facility] bmi 2023-11-14 13:30:00 25.51 kg/m2 Comm on [facility] blood pressure systolic 2023-11-14 13:30:00 126 mm[Hg] [facility] blood pressure diastolic 2023-11-14 13:30:00 76 mm[Hg] [facility] height 2023-10-03 09:00:00 61 [in_i] Commo n [facility] weight 2023-10-03 09:00:00 136 [lb_av] Comm on [facility] bmi 2023-10-03 09:00:00 25.69 kg/m2 Comm on [facility] blood pressure systolic 2023-10-03 09:00:00 126 mm[Hg] [facility] blood pressure diastolic 2023-10-03 09:00:00 80 mm[Hg] [facility] height 2023-09-19 09:30:00 61 [in_i] Commo n [facility] weight 2023-09-19 09:30:00 136 [lb_av] Comm on [facility] bmi 2023-09-19 09:30:00 25.69 kg/m2 Comm on [facility] blood pressure systolic 2023-09-19 09:30:00 126 mm[Hg] [facility] blood pressure diastolic 2023-09-19 09:30:00 82 mm[Hg] Common [facility] height 2023-09-16 10:45:00 61 [in_i] Commo n [facility] weight 2023-09-16 10:45:00 136 [lb_av] Comm on [facility] temperature 2023-09-16 10:45:00 98.2 [degF] Com mon [facility] bmi 2023-09-16 10:45:00 25.69 kg/m2 Comm on [facility] blood pressure systolic 2023-09-16 10:45:00 126 mm[Hg] [facility] blood pressure diastolic 2023-09-16 10:45:00 82 mm[Hg] Common [facility] height 2023-09-12 08:30:00 61 [in_i] Commo n [facility] weight 2023-09-12 08:30:00 136.0 [lb_av] Co mmon [facility] temperature 2023-09-12 08:30:00 97.9 [degF] Com mon [facility] bmi 2023-09-12 08:30:00 25.69 kg/m2 Comm on [facility] oximetry 2023-09-12 08:30:00 99 % Commo n [facility] respiratory rate 2023-09-12 08:30:00 18 /min Common [facility] blood pressure systolic 2023-09-12 08:30:00 130 mm[Hg] [facility] blood pressure diastolic 2023-09-12 08:30:00 68 mm[Hg] [facility] height 2023-09-12 08:30:00 61 [in_i] Commo n [facility] weight 2023-09-12 08:30:00 136 [lb_av] Comm on [facility] temperature 2023-09-12 08:30:00 97.9 [degF] Com mon [facility] bmi 2023-09-12 08:30:00 25.69 kg/m2 Comm on [facility] oximetry 2023-09-12 08:30:00 99 % Commo n [facility] respiratory rate 2023-09-12 08:30:00 18 /min [facility] blood pressure systolic 2023-09-12 08:30:00 130 mm[Hg] [facility] blood pressure diastolic 2023-09-12 08:30:00 68 mm[Hg] [facility] Encounters Start Date/Time End Date/Time Encounter Type Admission Type Attending Clinicians Care Facility Care Department Encounter ID Source 2023-09-17 14:31:02 [facility] [id number] [facility] 2023-09-12 08:32:01 [facility] [id number] [facility] 2024-03-04 09:40:24 2024-03-04 10:36:01 Outpatient Elective MARINO SIFUENTES MHEOUT MHEOUT [id number] MHEOUT 2024-03-04 09:40:00 2024-03-04 10:36:01 Office Visit Marino Sifuentes [facility] [id number] Yelena Newell [facility] 2024-02-05 09:17:04 2024-02-05 10:51:20 Outpatient Elective SELBST, MARINO MHEOUT MHEOUT [id number] MHEOUT 2024-02-05 09:30:00 2024-02-05 09:40:00 Office Visit Selbst, Marino Mccall [facility] [id number] [facility]:00:00 2024-02-04 00:00:00 OFFICE VISIT ESTAB PT LEVEL 3 STLMLC STLMLC [id number] [facility] 2024-01-22 10:08:39 2024-01-22 11:25:53 [facility] [id number] EOUT 2024-01-22 10:00:00 2024-01-22 10:10:00 Office Visit Selbst, Marinojohnson Mccall [facility] [id number] Yelena Newell [facility] 2024-01-06 11:38:21 2024-01-06 12:21:17 Outpatient Elective [facility]BST[facility] [id number] EOUT 2024-01-06 11:10:00 2024-01-06 11:20:00 Consult Selbst, Marino Cal [facility] [id number] [facility] 2023-12-24 00:00:00 2023-12-24 00:00:00 (PO) Post Op STLMLC STLMLC [id number] [facility] 2023-12-16 00:00:00 2023-12-16 00:00:00 (TEL) STLMLC STLMLC [id number] [facility] 2023-11-27 00:00:00 2023-11-27 00:00:00 (TEL) STLMLC STLMLC [id number] [facility] 2023-11-14 00:00:00 2023-11-14 00:00:00 NON-BILLAB LE VISIT STLMLC STLC [id number] [facility] 2023-10-29 00:00:00 2023-10-29 00:00:00 (TEL) STLMLC STLC [id number] [facility] 2023-10-03 00:00:00 2023-10-03 00:00:00 NON-BILLAB LE VISIT STLC STLC [id number] [facility] 2023-09-24 00:00:00 2023-09-24 00:00:00 (TEL) STLC STLC [id number] [facility] 2023-09-19 00:00:00 2023-09-19 00:00:00 OFFICE VISIT ESTAB PT LEVEL 4 STLMLC STLMLC [id number] [facility] 2023-09-16 00:00:00 2023-09-16 00:00:00 NON-BILLAB LE VISIT STLMLC STLC [id number] [facility] 2023-09-12 00:00:00 2023-09-12 00:00:00 OFFICE VISIT ESTAB PT LEVEL 4 STLMLC STLC [id number] [facility] 2023-09-12 00:00:00 2023-09-12 00:00:00 SUB ANNUAL MCR WELLNESS VISIT STLC STLC [id number] [facility] 2023-05-03 00:00:00 2023-05-03 00:00:00 Outpatient GC_GCBZW_Ka maggie_S PRIV PRIV [id number] [facility] Results Test Description Test Time Test Comments Results Result Co mments Source MRI Shoulder Rt Wo Cont MRI Shoulder Rt Wo Cont Notes Upcoming Encounters Date/Time Note Provider Source 2024-03-04 10:37:43 Marino Sifuentes, DP - 03/04/2024 9:40 AM CDT CHIEF COMPLAINT: ARTHRITIS, RIGHT ANKLE ( MILD) ANKLE SPRAIN, RIGHT HISTORY OF PRESENT ILLNESS: Patient returns for right ankle pain evaluation Patient states pain improving with ankle brace and reduced activity Patient denies infection, injury, wounds since the previous exam Patient states pain currently rated 0/10 on palpation of intervention, right lateral ankle --- Patient states recently underwent right knee surgery, September 25, 2023 Patient states she had been conducting physical therapy and may have sprained her ankle, approximately December 15, 2023 Patient unable to recall the exact mechanism of injury or the event to cause the specific pain in the right lateral ankle 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 and has developed chronic lateral ankle instability when walking even on flat surfaces Patient states pain is currently rated 4/10 on palpation, RIGHT lateral ankle OBJECTIVE: PHYSICAL EXAM OF THE LOWER EXTREMITY VASCULAR: (-) edema, lateral ankle (-) ecchymosis, lateral ankle (-) erythema Dorsal pedis pulse, graded 2/4; bilateral Posterior tibial pulse, graded 2/4; bilateral Capillary Refill time: within normal limits; bilateral (-) varicosities (+) pedal hair growth NEUROLOGICAL: (+) sensation with 5.07 [place] Natalio monofilament examination to the most distal lower extremity (-) tinel's sign (-) clonus present DERMATOLOGICAL: (-) open wounds (-) signs of soft tissue infection (-) ischemic tissue (-) abscess (-) other primary or secondary lesions (+) normal temperature when compared to contralateral limb (+) normal color, tugor, and elasticity MUSCULOSKELETAL: (-) anterior draw sign with dimpling (-) noted when compared to the contralateral limb (-) pain on palpation to the anterior talo-fibular ligament, during stress by plantar flexion and inversion of the foot (-) pain on palpation to the the calcaneal fibular ligament, during stress by inversion of the rearfoot (-) pain on palpation to the posterior talo-fibular ligament, with and without stress (-) pain on palpation to the proximal or distal fibula (-) pain on palpation along the peroneal tendons, with and without resistance (-) pain on palpation to the 5th metatarsal base, anterior calcaneal tuberosity 5/5 muscle strength to extrinsic pedal muscle groups (-) evidence of compartment syndrome (-) evidence of deep vein thrombosis X-rays right ankle 01/06/2024: (-) Fracture, (-) dislocation, (-) osteochondral defect, (-) arthritis MRI right ankle 01/29/2024: (-) Ligament/tendon injury (+) mild degenerative arthritis ASSESSMENT: Arthritis, right ankle PLAN: - Extensive visit discussing possible pedal complications including (but not limited to) arthritis and reoccurring injury with possible fracture - Pain - well controlled with [id number] NSAIDs - Cast - patient defers since unable to tolerate following recent knee surgery - X-rays - reviewed - MRI -Reviewed - Weight bearing - as tolerated with ankle brace since unable to tolerate boot following recent knee surgery, DISPENSED 01/06/2024 - physical therapy - patient currently defers, but may consider restarting at patient request - Return 2 weeks AFTER MARCH[employer] AT [email or web address] TO CONSIDER RESTARTING PHYSICAL THERAPY Patient advised to report to my clinic or the emergency room immediately with any questions or concerns.Patient Instructions:Discussion: A detailed discussion was provided to the patient with specific reference to etiology, pathology, alternate treatment options, and prognosis. All risks and complications (including side effects) with each treatment/medication alternative were outlined in detail including but not limited to: Pain, swelling, numbness,loss of function, loss of limb, bleeding, hematoma, scarring, failure to relieve condition, surgery, additional/revisional surgery, reflex sympathetic dystrophy, complex regional pain syndrome, reoccurrence of deformity, joint stiffness, flail toe, bone and/or soft tissue infection, blood clots, pulmonary embolism, possible ,delayed or non-healing. X-rays, graphs and drawings were all used to assist with patient comprehension when appropriate. All patients questions were answered and stated they fully understood. No guarantee as to results or outcome of treatment was made. I have discussed with the patient or legally responsible person prior to obtaining consent: the risks, potential benefits and drawbacks, significant alternatives, potential for problems related to recuperation, likelihood of success, and possible results of non-treatment, and the patient or the legally responsible person has agreed to proceed. [facility] Due Date Last Done Comments CT Colonography 1955 Colonoscopy 1955 Colorectal Cancer Screening 1955 FIT-DNA 1955 FIT 1955 FOBT 1955 Medicare Annual Wellness (AWV) 1955 Sigmoidoscopy 1955 DTaP/Tdap/Td Vaccines (1 - Tdap) 1974 Mammogram 1995 Zoster Vaccines (1 of 2) 2005 Respiratory Syncytial Virus (RSV) or >=60 (1 - 1-dose 60+ series) 2015 Pneumococcal Vaccine: 65+ Ye ars (1 of 1 - PCV) 2020 Influenza Vaccine (#1) 2024 HIB Vaccines Aged Out No longer eligi ble based on patient's age to complete this topic HPV Vaccines Aged Out No longer eligi ble based on patient's age to complete this topic Hepatitis A Vaccines Aged Out No long er eligible based on patient's age to complete this topic Hepatitis B Vaccines Aged Out No long er eligible based on patient's age to complete this topic IPV Vaccines Aged Out No longer eligi ble based on patient's age to complete this topic Meningococcal Vaccine Aged Out No julio myesha eligible based on patient's age to complete this topic Rotavirus Vaccines Aged Out No longer eligible based on patient's age to complete this topic [id number] 10:37:43 Diagnosis Abnormal foot finding - Prim myron [id number] 10:37:43 [place] [id number] 10:37:43* Marino Sifuentes DPM - 03/04/2024 9:40 AM CDT CHIEF COMPLAINT: ARTHRITIS, RIGHT ANKLE ( MILD) ANKLE SPRAIN, RIGHT HISTORY OF PRESENT ILLNESS: Patient returns for right ankle pain evaluation Patient states pain improving with ankle brace and reduced activity Patient denies infection, injury, wounds since the previous exam Patient states pain currently rated 0/10 on palpation of intervention, right lateral ankle --- Patient states recently underwent right knee surgery, September 25, 2023 Patient states she had been conducting physical therapy and may have sprained her ankle, approximately December 15, 2023 Patient unable to recall the exact mechanism of injury or the event to cause the specific pain in the right lateral ankle 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 and has developed chronic lateral ankle instability when walking even on flat surfaces Patient states pain is currently rated 4/10 on palpation, RIGHT lateral ankle OBJECTIVE: PHYSICAL EXAM OF THE LOWER EXTREMITY VASCULAR: (-) edema, lateral ankle (-) ecchymosis, lateral ankle (-) erythema Dorsal pedis pulse, graded 2/4; bilateral Posterior tibial pulse, graded 2/4; bilateral Capillary Refill time: within normal limits; bilateral (-) varicosities (+) pedal hair growth NEUROLOGICAL: (+) sensation with 5.07 [place] Natalio monofilament examination to the most distal lower extremity (-) tinel's sign (-) clonus present DERMATOLOGICAL: (-) open wounds (-) signs of soft tissue infection (-) ischemic tissue (-) abscess (-) other primary or secondary lesions (+) normal temperature when compared to contralateral limb (+) normal color, tugor, and elasticity MUSCULOSKELETAL: (-) anterior draw sign with dimpling (-) noted when compared to the contralateral limb (-) pain on palpation to the anterior talo-fibular ligament, during stress by plantar flexion and inversion of the foot (-) pain on palpation to the the calcaneal fibular ligament, during stress by inversion of the rearfoot (-) pain on palpation to the posterior talo-fibular ligament, with and without stress (-) pain on palpation to the proximal or distal fibula (-) pain on palpation along the peroneal tendons, with and without resistance (-) pain on palpation to the 5th metatarsal base, anterior calcaneal tuberosity 5/5 muscle strength to extrinsic pedal muscle groups (-) evidence of compartment syndrome (-) evidence of deep vein thrombosis X-rays right ankle 01/06/2024: (-) Fracture, (-) dislocation, (-) osteochondral defect, (-) arthritis MRI right ankle 01/29/2024: (-) Ligament/tendon injury (+) mild degenerative arthritis ASSESSMENT: Arthritis, right ankle PLAN: - Extensive visit discussing possible pedal complications including (but not limited to) arthritis and reoccurring injury with possible fracture - Pain - well controlled with asol-yqe-eqoazkc NSAIDs - Cast - patient defers since unable to tolerate following recent knee surgery - X-rays - reviewed - MRI -Reviewed - Weight bearing - as tolerated with ankle brace since unable to tolerate boot following recent knee surgery, DISPENSED 01/06/2024 - physical therapy - patient currently defers, but may consider restarting at patient request - Return 2 weeks AFTER [facility] AT [facility] [facility] TO CONSIDER RESTARTING PHYSICAL THERAPY Patient advised to report to my clinic or the emergency room immediately with any questions or concerns.Patient Instructions:Discussion: A detailed discussion was provided to the patient with specific reference to etiology, pathology, alternate treatment options, and prognosis. All risks and complications (including side effects) with each treatment/medication alternative were outlined in detail including but not limited to: Pain, swelling, numbness,loss of function, loss of limb, bleeding, hematoma, scarring, failure to relieve condition, surgery, additional/revisional surgery, reflex sympathetic dystrophy, complex regional pain syndrome, reoccurrence of deformity, joint stiffness, flail toe, bone and/or soft tissue infection, blood clots, pulmonary embolism, possible ,delayed or non-healing. X-rays, graphs and drawings were all used to assist with patient comprehension when appropriate. All patients questions were answered and stated they fully understood. No guarantee as to results or outcome of treatment was made. I have discussed with the patient or legally responsible person prior to obtaining consent: the risks, potential benefits and drawbacks, significant alternatives, potential for problems related to recuperation, likelihood of success, and possible results of non-treatment, and the patient or the legally responsible person has agreed to proceed. [id number] 10:37:43Upcoming Encounters Health Maintenance Due Date Last Done Comments CT Colonography 1955 Colonoscopy 1955 Colorectal Cancer Screening 1955 FIT-DNA 1955 FIT 1955 FOBT 1955 Medicare Annual Wellness (AWV) 1955 Sigmoidoscopy 1955 DTaP/Tdap/Td Vaccines (1 - Tdap) 1974 Mammogram 1995 Zoster Vaccines (1 of 2) 2005 Respiratory Syncytial Virus (RSV) or >=60 (1 - 1-dose 60+ series) 2015 Pneumococcal Vaccine: 65+ Ye ars (1 of 1 - PCV) 2020 Influenza Vaccine (#1) 2024 HIB Vaccines Aged Out No longer eligi ble based on patient's age to complete this topic HPV Vaccines Aged Out No longer eligi ble based on patient's age to complete this topic Hepatitis A Vaccines Aged Out No long er eligible based on patient's age to complete this topic Hepatitis B Vaccines Aged Out No long er eligible based on patient's age to complete this topic IPV Vaccines Aged Out No longer eligi ble based on patient's age to complete this topic Meningococcal Vaccine Aged Out No julio myesha eligible based on patient's age to complete this topic Rotavirus Vaccines Aged Out No longer eligible based on patient's age to complete this topic [place] [id number] 10:37:43 Diagnosis Abnormal foot finding - Prim myron [id number] 10:37:43 [place] [id number] 10:44:22* Marino Sifuentes, KATHARINA - 02/05/2024 9:30 AM CDT CHIEF COMPLAINT: ARTHRITIS, RIGHT ANKLE ( MILD) ANKLE SPRAIN, RIGHT HISTORY OF PRESENT ILLNESS: Patient returns for right ankle pain evaluation Patient states pain improving with ankle brace and reduced activity Patient denies infection, injury, wounds since the previous exam Patient states pain currently rated 0/10 on palpation of intervention, right lateral ankle --- Patient states recently underwent right knee surgery, September 25, 2023 Patient states she had been conducting physical therapy and may have sprained her ankle, approximately December 15, 2023 Patient unable to recall the exact mechanism of injury or the event to cause the specific pain in the right lateral ankle 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 and has developed chronic lateral ankle instability when walking even on flat surfaces Patient states pain is currently rated 4/10 on palpation, RIGHT lateral ankle OBJECTIVE: PHYSICAL EXAM OF THE LOWER EXTREMITY VASCULAR: (-) edema, lateral ankle (-) ecchymosis, lateral ankle (-) erythema Dorsal pedis pulse, graded 2/4; bilateral Posterior tibial pulse, graded 2/4; bilateral Capillary Refill time: within normal limits; bilateral (-) varicosities (+) pedal hair growth NEUROLOGICAL: (+) sensation with 5.07 [place] Natalio monofilament examination to the most distal lower extremity (-) tinel's sign (-) clonus present DERMATOLOGICAL: (-) open wounds (-) signs of soft tissue infection (-) ischemic tissue (-) abscess (-) other primary or secondary lesions (+) normal temperature when compared to contralateral limb (+) normal color, tugor, and elasticity MUSCULOSKELETAL: (-) anterior draw sign with dimpling (-) noted when compared to the contralateral limb (-) pain on palpation to the anterior talo-fibular ligament, during stress by plantar flexion and inversion of the foot (-) pain on palpation to the the calcaneal fibular ligament, during stress by inversion of the rearfoot (-) pain on palpation to the posterior talo-fibular ligament, with and without stress (-) pain on palpation to the proximal or distal fibula (-) pain on palpation along the peroneal tendons, with and without resistance (-) pain on palpation to the 5th metatarsal base, anterior calcaneal tuberosity 5/5 muscle strength to extrinsic pedal muscle groups (-) evidence of compartment syndrome (-) evidence of deep vein thrombosis X-rays right ankle 01/06/2024: (-) Fracture, (-) dislocation, (-) osteochondral defect, (-) arthritis MRI right ankle 01/29/2024: (-) Ligament/tendon injury (+) mild degenerative arthritis ASSESSMENT: Arthritis, right ankle PLAN: - Extensive visit discussing possible pedal complications including (but not limited to) arthritis and reoccurring injury with possible fracture - Pain - well controlled with zhou-xbb-[id number] NSAIDs - Cast - patient defers since unable to tolerate following recent knee surgery - X-rays - reviewed - MRI -Reviewed - Weight bearing - as tolerated with ankle brace since unable to tolerate boot following recent knee surgery, DISPENSED 01/06/2024 - physical therapy - continue as needed per ortho knee recs - Return 4 weeks for routine eval Patient advised to report to my clinic or the emergency room immediately with any questions or concerns.Patient Instructions:Discussion: A detailed discussion was provided to the patient with specific reference to etiology, pathology, alternate treatment options, and prognosis. All risks and complications (including side effects) with each treatment/medication alternative were outlined in detail including but not limited to: Pain, swelling, numbness,loss of function, loss of limb, bleeding, hematoma, scarring, failure to relieve condition, surgery, additional/revisional surgery, reflex sympathetic dystrophy, complex regional pain syndrome, reoccurrence of deformity, joint stiffness, flail toe, bone and/or soft tissue infection, blood clots, pulmonary embolism, possible ,delayed or non-healing. X-rays, graphs and drawings were all used to assist with patient comprehension when appropriate. All patients questions were answered and stated they fully understood. No guarantee as to results or outcome of treatment was made. I have discussed with the patient or legally responsible person prior to obtaining consent: the risks, potential benefits and drawbacks, significant alternatives, potential for problems related to recuperation, likelihood of success, and possible results of non-treatment, and the patient or the legally responsible person has agreed to proceed. [place] [id number] 10:44:22Upcoming Encounters Health Maintenance Due Date Last Done Comments CT Colonography 1955 Colonoscopy 1955 Colorectal Cancer Screening 1955 FIT-DNA 1955 FIT 1955 FOBT 1955 Medicare Annual Wellness (AWV) 1955 Sigmoidoscopy 1955 DTaP/Tdap/Td Vaccines (1 - Tdap) 1974 Mammogram 1995 Zoster Vaccines (1 of 2) 2005 Respiratory Syncytial Virus (RSV) or >=60 (1 - 1-dose 60+ series) 2015 Pneumococcal Vaccine: 65+ Ye ars (1 of 1 - PCV) 2020 Influenza Vaccine (#1) 2024 HIB Vaccines Aged Out No longer eligi ble based on patient's age to complete this topic HPV Vaccines Aged Out No longer eligi ble based on patient's age to complete this topic Hepatitis A Vaccines Aged Out No long er eligible based on patient's age to complete this topic Hepatitis B Vaccines Aged Out No long er eligible based on patient's age to complete this topic IPV Vaccines Aged Out No longer eligi ble based on patient's age to complete this topic Meningococcal Vaccine Aged Out No julio myesha eligible based on patient's age to complete this topic Rotavirus Vaccines Aged Out No longer eligible based on patient's age to complete this topic [id number] 10:44:22 Diagnosis Abnormal foot finding - Ramona sanches [id number] 10:44:22 [facility]icsVlzhubk2687-17-27 10:44:22* Marino Sifuentes, KATHARINA - 02/05/2024 9:30 AM CDT CHIEF COMPLAINT: ARTHRITIS, RIGHT ANKLE ( MILD) ANKLE SPRAIN, RIGHT HISTORY OF PRESENT ILLNESS: Patient returns for right ankle pain evaluation Patient states pain improving with ankle brace and reduced activity Patient denies infection, injury, wounds since the previous exam Patient states pain currently rated 0/10 on palpation of intervention, right lateral ankle --- Patient states recently underwent right knee surgery, September 25, 2023 Patient states she had been conducting physical therapy and may have sprained her ankle, approximately December 15, 2023 Patient unable to recall the exact mechanism of injury or the event to cause the specific pain in the right lateral ankle 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 and has developed chronic lateral ankle instability when walking even on flat surfaces Patient states pain is currently rated 4/10 on palpation, RIGHT lateral ankle OBJECTIVE: PHYSICAL EXAM OF THE LOWER EXTREMITY VASCULAR: (-) edema, lateral ankle (-) ecchymosis, lateral ankle (-) erythema Dorsal pedis pulse, graded 2/4; bilateral Posterior tibial pulse, graded 2/4; bilateral Capillary Refill time: within normal limits; bilateral (-) varicosities (+) pedal hair growth NEUROLOGICAL: (+) sensation with 5.07 [place] Natalio monofilament examination to the most distal lower extremity (-) tinel's sign (-) clonus present DERMATOLOGICAL: (-) open wounds (-) signs of soft tissue infection (-) ischemic tissue (-) abscess (-) other primary or secondary lesions (+) normal temperature when compared to contralateral limb (+) normal color, tugor, and elasticity MUSCULOSKELETAL: (-) anterior draw sign with dimpling (-) noted when compared to the contralateral limb (-) pain on palpation to the anterior talo-fibular ligament, during stress by plantar flexion and inversion of the foot (-) pain on palpation to the the calcaneal fibular ligament, during stress by inversion of the rearfoot (-) pain on palpation to the posterior talo-fibular ligament, with and without stress (-) pain on palpation to the proximal or distal fibula (-) pain on palpation along the peroneal tendons, with and without resistance (-) pain on palpation to the 5th metatarsal base, anterior calcaneal tuberosity 5/5 muscle strength to extrinsic pedal muscle groups (-) evidence of compartment syndrome (-) evidence of deep vein thrombosis X-rays right ankle 01/06/2024: (-) Fracture, (-) dislocation, (-) osteochondral defect, (-) arthritis MRI right ankle 01/29/2024: (-) Ligament/tendon injury (+) mild degenerative arthritis ASSESSMENT: Arthritis, right ankle PLAN: - Extensive visit discussing possible pedal complications including (but not limited to) arthritis and reoccurring injury with possible fracture - Pain - well controlled with blkr-vyy-ntavhax NSAIDs - Cast - patient defers since unable to tolerate following recent knee surgery - X-rays - reviewed - MRI -Reviewed - Weight bearing - as tolerated with ankle brace since unable to tolerate boot following recent knee surgery, DISPENSED 01/06/2024 - physical therapy - continue as needed per ortho knee recs - Return 4 weeks for routine eval Patient advised to report to my clinic or the emergency room immediately with any questions or concerns.Patient Instructions:Discussion: A detailed discussion was provided to the patient with specific reference to etiology, pathology, alternate treatment options, and prognosis. All risks and complications (including side effects) with each treatment/medication alternative were outlined in detail including but not limited to: Pain, swelling, numbness,loss of function, loss of limb, bleeding, hematoma, scarring, failure to relieve condition, surgery, additional/revisional surgery, reflex sympathetic dystrophy, complex regional pain syndrome, reoccurrence of deformity, joint stiffness, flail toe, bone and/or soft tissue infection, blood clots, pulmonary embolism, possible ,delayed or non-healing. X-rays, graphs and drawings were all used to assist with patient comprehension when appropriate. All patients questions were answered and stated they fully understood. No guarantee as to results or outcome of treatment was made. I have discussed with the patient or legally responsible person prior to obtaining consent: the risks, potential benefits and drawbacks, significant alternatives, potential for problems related to recuperation, likelihood of success, and possible results of non-treatment, and the patient or the legally responsible person has agreed to proceed. [id number] 10:44:22Upcoming Encounters Health Maintenance Due Date Last Done Comments CT Colonography 1955 Colonoscopy 1955 Colorectal Cancer Screening 1955 FIT-DNA 1955 FIT 1955 FOBT 1955 Medicare Annual Wellness (AWV) 1955 Sigmoidoscopy 1955 DTaP/Tdap/Td Vaccines (1 - Tdap) 1974 Mammogram 1995 Zoster Vaccines (1 of 2) 2005 Respiratory Syncytial Virus (RSV) or >=60 (1 - 1-dose 60+ series) 2015 Pneumococcal Vaccine: 65+ Ye ars (1 of 1 - PCV) 2020 Influenza Vaccine (#1) 2024 HIB Vaccines Aged Out No longer eligi ble based on patient's age to complete this topic HPV Vaccines Aged Out No longer eligi ble based on patient's age to complete this topic Hepatitis A Vaccines Aged Out No long er eligible based on patient's age to complete this topic Hepatitis B Vaccines Aged Out No long er eligible based on patient's age to complete this topic IPV Vaccines Aged Out No longer eligi ble based on patient's age to complete this topic Meningococcal Vaccine Aged Out No julio myesha eligible based on patient's age to complete this topic Rotavirus Vaccines Aged Out No longer eligible based on patient's age to complete this topic [id number] 10:44:22 Diagnosis Abnormal foot finding - Prim myron [id number] 10:44:22 [facility] [id number] 10:53:23* Marino Sifuentes DPM - 01/22/2024 10:00 AM CDT CHIEF COMPLAINT: ANKLE SPRAIN, RIGHT HISTORY OF PRESENT ILLNESS: Patient returns for right ankle pain evaluation Patient states pain improving with ankle brace and reduced activity Patient denies infection, injury, wounds since the previous exam Patient states pain currently rated 2/10 on palpation of intervention, right lateral ankle --- Patient states recently underwent right knee surgery, September 25, 2023 Patient states she had been conducting physical therapy and may have sprained her ankle, approximately December 15, 2023 Patient unable to recall the exact mechanism of injury or the event to cause the specific pain in the right lateral ankle 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 and has developed chronic lateral ankle instability when walking even on flat surfaces Patient states pain is currently rated 4/10 on palpation, RIGHT lateral ankle OBJECTIVE: PHYSICAL EXAM OF THE LOWER EXTREMITY VASCULAR: (-) edema, lateral ankle (-) ecchymosis, lateral ankle (-) erythema Dorsal pedis pulse, graded 2/4; bilateral Posterior tibial pulse, graded 2/4; bilateral Capillary Refill time: within normal limits; bilateral (-) varicosities (+) pedal hair growth NEUROLOGICAL: (+) sensation with 5.07 [place] Natalio monofilament examination to the most distal lower extremity (-) tinel's sign (-) clonus present DERMATOLOGICAL: (-) open wounds (-) signs of soft tissue infection (-) ischemic tissue (-) abscess (-) other primary or secondary lesions (+) normal temperature when compared to contralateral limb (+) normal color, tugor, and elasticity MUSCULOSKELETAL: (+) anterior draw sign with dimpling (-) noted when compared to the contralateral limb (+) pain on palpation to the anterior talo-fibular ligament, during stress by plantar flexion and inversion of the foot (+) pain on palpation to the the calcaneal fibular ligament, during stress by inversion of the rearfoot (-) pain on palpation to the posterior talo-fibular ligament, with and without stress (-) pain on palpation to the proximal or distal fibula (-) pain on palpation along the peroneal tendons, with and without resistance (-) pain on palpation to the 5th metatarsal base, anterior calcaneal tuberosity 5/5 muscle strength to extrinsic pedal muscle groups (-) evidence of compartment syndrome (-) evidence of deep vein thrombosis X-rays right ankle 01/06/2024: (-) Fracture, (-) dislocation, (-) osteochondral defect, (-) arthritis ASSESSMENT: Ankle sprain, RIGHT Anterior talo-fibular ligament rupture Calcaneal fibular ligament rupture. PLAN: - Extensive visit discussing possible pedal complications including (but not limited to) arthritis and reoccurring injury with possible fracture - Pain - well controlled with [id number] NSAIDs - Cast - patient defers since unable to tolerate following recent knee surgery - X-rays - reviewed - MRI - ORDERED 01/21 - Weight bearing - educated about crutches, reduced in ankle brace since unable to tolerate boot following recent knee surgery, DISPENSED 01/06/2024 - Return 2 weeks after her MRI Patient advised to report to my clinic or the emergency room immediately with any questions or concerns.Patient Instructions:Discussion: A detailed discussion was provided to the patient with specific reference to etiology, pathology, alternate treatment options, and prognosis. All risks and complications (including side effects) with each treatment/medication alternative were outlined in detail including but not limited to: Pain, swelling, numbness,loss of function, loss of limb, bleeding, hematoma, scarring, failure to relieve condition, surgery, additional/revisional surgery, reflex sympathetic dystrophy, complex regional pain syndrome, reoccurrence of deformity, joint stiffness, flail toe, bone and/or soft tissue infection, blood clots, pulmonary embolism, possible ,delayed or non-healing. X-rays, graphs and drawings were all used to assist with patient comprehension when appropriate. All patients questions were answered and stated they fully understood. No guarantee as to results or outcome of treatment was made. I have discussed with the patient or legally responsible person prior to obtaining consent: the risks, potential benefits and drawbacks, significant alternatives, potential for problems related to recuperation, likelihood of success, and possible results of non-treatment, and the patient or the legally responsible person has agreed to proceed. REY Newell2024-07-17 10:53:23Upcoming Encounters Health Maintenance Due Date Last Done Comments CT Colonography 1955 Colonoscopy 1955 Colorectal Cancer Screening 1955 FIT-DNA 1955 FIT 1955 FOBT 1955 Sigmoidoscopy 1955 DTaP/Tdap/Td Vaccines (1 - Tdap) 1974 Mammogram 1995 Zoster Vaccines (1 of 2) 2005 Respiratory Syncytial Virus (RSV) or >=60 (1 - 1-dose 60+ series) 2015 Pneumococcal Vaccine: 65+ Ye ars (1 of 1 - PCV) 2020 Influenza Vaccine (#1) 2024 HIB Vaccines Aged Out No longer eligi ble based on patient's age to complete this topic HPV Vaccines Aged Out No longer eligi ble based on patient's age to complete this topic Hepatitis A Vaccines Aged Out No long er eligible based on patient's age to complete this topic Hepatitis B Vaccines Aged Out No long er eligible based on patient's age to complete this topic IPV Vaccines Aged Out No longer eligi ble based on patient's age to complete this topic Meningococcal Vaccine Aged Out No julio myesha eligible based on patient's age to complete this topic Rotavirus Vaccines Aged Out No longer eligible based on patient's age to complete this topic [facility]icsKknxvey2597-15-12 10:53:23 Diagnosis Abnormal foot finding - Prim myron [facility]icsWspryua0204-13-14 10:53:23 [id number] 10:53:23* Marino Sifuentes, KATHARINA - 01/22/2024 10:00 AM CDT CHIEF COMPLAINT: ANKLE SPRAIN, RIGHT HISTORY OF PRESENT ILLNESS: Patient returns for right ankle pain evaluation Patient states pain improving with ankle brace and reduced activity Patient denies infection, injury, wounds since the previous exam Patient states pain currently rated 2/10 on palpation of intervention, right lateral ankle --- Patient states recently underwent right knee surgery, September 25, 2023 Patient states she had been conducting physical therapy and may have sprained her ankle, approximately December 15, 2023 Patient unable to recall the exact mechanism of injury or the event to cause the specific pain in the right lateral ankle 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 and has developed chronic lateral ankle instability when walking even on flat surfaces Patient states pain is currently rated 4/10 on palpation, RIGHT lateral ankle OBJECTIVE: PHYSICAL EXAM OF THE LOWER EXTREMITY VASCULAR: (-) edema, lateral ankle (-) ecchymosis, lateral ankle (-) erythema Dorsal pedis pulse, graded 2/4; bilateral Posterior tibial pulse, graded 2/4; bilateral Capillary Refill time: within normal limits; bilateral (-) varicosities (+) pedal hair growth NEUROLOGICAL: (+) sensation with 5.07 [place] Natalio monofilament examination to the most distal lower extremity (-) tinel's sign (-) clonus present DERMATOLOGICAL: (-) open wounds (-) signs of soft tissue infection (-) ischemic tissue (-) abscess (-) other primary or secondary lesions (+) normal temperature when compared to contralateral limb (+) normal color, tugor, and elasticity MUSCULOSKELETAL: (+) anterior draw sign with dimpling (-) noted when compared to the contralateral limb (+) pain on palpation to the anterior talo-fibular ligament, during stress by plantar flexion and inversion of the foot (+) pain on palpation to the the calcaneal fibular ligament, during stress by inversion of the rearfoot (-) pain on palpation to the posterior talo-fibular ligament, with and without stress (-) pain on palpation to the proximal or distal fibula (-) pain on palpation along the peroneal tendons, with and without resistance (-) pain on palpation to the 5th metatarsal base, anterior calcaneal tuberosity 5/5 muscle strength to extrinsic pedal muscle groups (-) evidence of compartment syndrome (-) evidence of deep vein thrombosis X-rays right ankle 01/06/2024: (-) Fracture, (-) dislocation, (-) osteochondral defect, (-) arthritis ASSESSMENT: Ankle sprain, RIGHT Anterior talo-fibular ligament rupture Calcaneal fibular ligament rupture. PLAN: - Extensive visit discussing possible pedal complications including (but not limited to) arthritis and reoccurring injury with possible fracture - Pain - well controlled with [id number] NSAIDs - Cast - patient defers since unable to tolerate following recent knee surgery - X-rays - reviewed - MRI - ORDERED 01/21 - Weight bearing - educated about crutches, reduced in ankle brace since unable to tolerate boot following recent knee surgery, DISPENSED 01/06/2024 - Return 2 weeks after her MRI Patient advised to report to my clinic or the emergency room immediately with any questions or concerns.Patient Instructions:Discussion: A detailed discussion was provided to the patient with specific reference to etiology, pathology, alternate treatment options, and prognosis. All risks and complications (including side effects) with each treatment/medication alternative were outlined in detail including but not limited to: Pain, swelling, numbness,loss of function, loss of limb, bleeding, hematoma, scarring, failure to relieve condition, surgery, additional/revisional surgery, reflex sympathetic dystrophy, complex regional pain syndrome, reoccurrence of deformity, joint stiffness, flail toe, bone and/or soft tissue infection, blood clots, pulmonary embolism, possible ,delayed or non-healing. X-rays, graphs and drawings were all used to assist with patient comprehension when appropriate. All patients questions were answered and stated they fully understood. No guarantee as to results or outcome of treatment was made. I have discussed with the patient or legally responsible person prior to obtaining consent: the risks, potential benefits and drawbacks, significant alternatives, potential for problems related to recuperation, likelihood of success, and possible results of non-treatment, and the patient or the legally responsible person has agreed to proceed. [id number] 10:53:23Upcoming Encounters Health Maintenance Due Date Last Done Comments CT Colonography 1955 Colonoscopy 1955 Colorectal Cancer Screening 1955 FIT-DNA 1955 FIT 1955 FOBT 1955 Sigmoidoscopy 1955 DTaP/Tdap/Td Vaccines (1 - Tdap) 1974 Mammogram 1995 Zoster Vaccines (1 of 2) 2005 Respiratory Syncytial Virus (RSV) or >=60 (1 - 1-dose 60+ series) 2015 Pneumococcal Vaccine: 65+ Ye ars (1 of 1 - PCV) 2020 Influenza Vaccine (#1) 2024 HIB Vaccines Aged Out No longer eligi ble based on patient's age to complete this topic HPV Vaccines Aged Out No longer eligi ble based on patient's age to complete this topic Hepatitis A Vaccines Aged Out No long er eligible based on patient's age to complete this topic Hepatitis B Vaccines Aged Out No long er eligible based on patient's age to complete this topic IPV Vaccines Aged Out No longer eligi ble based on patient's age to complete this topic Meningococcal Vaccine Aged Out No julio myesha eligible based on patient's age to complete this topic Rotavirus Vaccines Aged Out No longer eligible based on patient's age to complete this topic [id number] 10:53:23 Diagnosis Abnormal foot finding - Prim myron [id number] 10:53:23 [id number] 12:17:30 [id number] 12:17:30* Marino Sifuentes, KATHARINA - 01/06/2024 11:10 AM CDT CHIEF COMPLAINT: ANKLE SPRAIN, RIGHT HISTORY OF PRESENT ILLNESS: Patient states recently underwent right knee surgery, September 25, 2023 Patient states she had been conducting physical therapy and may have sprained her ankle, approximately December 15, 2023 Patient unable to recall the exact mechanism of injury or the event to cause the specific pain in the right lateral ankle 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 and has developed chronic lateral ankle instability when walking even on flat surfaces Patient states pain is currently rated 4/10 on palpation, RIGHT lateral ankle OBJECTIVE: PHYSICAL EXAM OF THE LOWER EXTREMITY VASCULAR: (-) edema, lateral ankle (-) ecchymosis, lateral ankle (-) erythema Dorsal pedis pulse, graded 2/4; bilateral Posterior tibial pulse, graded 2/4; bilateral Capillary Refill time: within normal limits; bilateral (-) varicosities (+) pedal hair growth NEUROLOGICAL: (+) sensation with 5.07 [place] Natalio monofilament examination to the most distal lower extremity (-) tinel's sign (-) clonus present DERMATOLOGICAL: (-) open wounds (-) signs of soft tissue infection (-) ischemic tissue (-) abscess (-) other primary or secondary lesions (+) normal temperature when compared to contralateral limb (+) normal color, tugor, and elasticity MUSCULOSKELETAL: (+) anterior draw sign with dimpling (-) noted when compared to the contralateral limb (+) pain on palpation to the anterior talo-fibular ligament, during stress by plantar flexion and inversion of the foot (+) pain on palpation to the the calcaneal fibular ligament, during stress by inversion of the rearfoot (-) pain on palpation to the posterior talo-fibular ligament, with and without stress (-) pain on palpation to the proximal or distal fibula (-) pain on palpation along the peroneal tendons, with and without resistance (-) pain on palpation to the 5th metatarsal base, anterior calcaneal tuberosity 5/5 muscle strength to extrinsic pedal muscle groups (-) evidence of compartment syndrome (-) evidence of deep vein thrombosis ASSESSMENT: Ankle sprain, RIGHT Anterior talo-fibular ligament rupture Calcaneal fibular ligament rupture. PLAN: - Extensive visit discussing possible pedal complications including (but not limited to) arthritis and reoccurring injury with possible fracture - Pain - well controlled with [id number] NSAIDs - Cast - patient defers since unable to tolerate following recent knee surgery - X-rays - ORDERED 01/05 - MRI - will consider pending x-ray results - Weight bearing - educated about crutches, reduced in ankle brace since unable to tolerate boot following recent knee surgery, DISPENSED 01/06/2024 - Return 1 week for imaging review Patient advised to report to my clinic or the emergency room immediately with any questions or concerns.Patient Instructions:Discussion: A detailed discussion was provided to the patient with specific reference to etiology, pathology, alternate treatment options, and prognosis. All risks and complications (including side effects) with each treatment/medication alternative were outlined in detail including but not limited to: Pain, swelling, numbness,loss of function, loss of limb, bleeding, hematoma, scarring, failure to relieve condition, surgery, additional/revisional surgery, reflex sympathetic dystrophy, complex regional pain syndrome, reoccurrence of deformity, joint stiffness, flail toe, bone and/or soft tissue infection, blood clots, pulmonary embolism, possible ,delayed or non-healing. X-rays, graphs and drawings were all used to assist with patient comprehension when appropriate. All patients questions were answered and stated they fully understood. No guarantee as to results or outcome of treatment was made. I have discussed with the patient or legally responsible person prior to obtaining consent: the risks, potential benefits and drawbacks, significant alternatives, potential for problems related to recuperation, likelihood of success, and possible results of non-treatment, and the patient or the legally responsible person has agreed to proceed. [id number] 12:17:30 [id number] 12:17:30 Diagnosis Abnormal foot finding - Prim myron [facility]
[2024-03-07 14:26] LABS: SARS-CoV-2 Antigen CONTROL BLUE LINE VIS/BG OK; SARS-CoV-2 Antigen Rapid Res Negative (Negative)
--- NOTE | 2024-03-07 15:18 | RAD REPORT ---
EXAM DESCRIPTION: Jesus Single View03/07/2024 2:36 pm CLINICAL HISTORY: Cough COMPARISON: September 2023 FINDINGS: The lungs appear clear of acute infiltrate. The heart is normal size IMPRESSION: No acute abnormalities displayed
--- NOTE | 2024-03-07 15:20 | ER ---
Nurse's Notes [facility] Name: Sharmaine Franklin Age: 68 yrs Sex: Female : 1955 Arrival Date: 03/07/2024 Time: 12:56 Bed 10 Private MD: Diagnosis: Acute upper respiratory infection, unspecified Presentation: 03/07 13:30 Chief complaint: Patient states: she started having cough, congestion, and back pain ap3 since Saturday03/04/24. Coronavirus screen: Client presents with at least one sign or symptom that may indicate coronavirus-19. Ebola Screen: No symptoms or risks identified at this time. Initial Sepsis Screen: Does the patient meet any 2 criteria? No. Patient's initial sepsis screen is negative. Does the patient have a suspected source of infection? No. Patient's initial sepsis screen is negative. Risk Assessment: Do you want to hurt yourself or someone else? Patient reports no desire to harm self or others. Onset of symptoms was March 04, 2024. 13:30 Method Of Arrival: Ambulatory ap3 13:30 Acuity: YANA 4 ap3 Triage Assessment: 13:32 General: Appears in no apparent distress. Behavior is calm, cooperative, appropriate ap3 for age, Reports feeling ill for fatigue for. Pain: Complains of pain in back. Neuro: Level of Consciousness is awake, alert, obeys commands, Oriented to person, place, time, situation, Appropriate for age. Cardiovascular: Patient's skin is warm and dry. Respiratory: Reports cough that is Airway is patent Respiratory effort is even, unlabored, Respiratory pattern is regular, symmetrical. Historical: - Allergies: 13:31 No Known Allergies; ap3 - PMHx: 13:31 Hypercholesterolemia; ap3 - PSHx: 13:31 hysterectomy; ap3 - Immunization history:: Client reports receiving the 2nd dose of the Covid vaccine, Flu vaccine is up to date. - Infectious Disease History:: Denies. - Social history:: Smoking status: Patient denies any tobacco usage or history of. Screenin:32 [facility] ED Fall Risk Assessment (Adult) History of falling in the last 3 months, ap3 including since admission No falls in past 3 months (0 pts) Confusion or Disorientation No (0 pts) Intoxicated or Sedated No (0 pts) Impaired Gait No (0 pts) Mobility Assist Device Used No (0 pt) Altered Elimination No (0 pt) Score/Fall Risk Level 0 - 2 = Low Risk Oriented to surroundings, Maintained a safe environment, Educated pt \T\ family on fall prevention, incl call for assistance when getting out of bed, Assessed \T\ reinforced patient's understanding of fall precautions, Hourly rounding (assess needs \T\ fall precautionary measures) done, Used ambulatory aids as needed (educated on \T\ assisted with), Used gait belt as appropriate. Abuse screen: Denies threats or abuse. Nutritional screening: No deficits noted. Tuberculosis screening: No symptoms or risk factors identified. Assessment: 16:01 Reassessment: Patient appears in no apparent distress at this time. Patient and/or hb family updated on plan of care and expected duration. Pain level reassessed. Patient is alert, oriented x 3, equal unlabored respirations, skin warm/dry/pink. Vital Signs: 13:30 BP 134 / 82; Pulse 88; Resp 17; Temp 98.1; Pulse Ox 99% ; Weight 62.6 kg; Height 5 ft. ap3 2 in. ; Pain 5/10; 13:30 Body Mass Index 25.24 (62.60 kg, 157.48 cm) ap3 13:30 Pain Scale: Adult ap3 ED Course: 13:03 Patient arrived in ED. mg5 13:08 Toyin Hodge [facility]NP-C [facility] kb 13:08 Glenn Ray MD is Attending Physician. kb 13:31 Triage completed. ap3 13:33 Arm band placed on right wrist. ap3 13:37 SARS-COV-2 Antigen Rapid Sent. ap3 13:37 Flu Sent. ap3 14:37 Chest Single View XRAY In Process Unspecified. EDMS 15:19 Glenn Ray MD is Referral Physician. kb 16:01 Patient has correct armband on for positive identification. Provided Education on: hb follow up, medications . 16:01 No provider procedures requiring assistance completed. Patient did not have IV access hb during this emergency room visit. Administered Medications: 15:56 Drug: Dexamethasone IM 10 mg IM once Route: IM; Site: left deltoid; hb 16:02 Follow up: Response: Medication administered at discharge. hb Medication: 13:33 VIS not applicable for this client. ap3 Outcome: 15:19 Discharge ordered by . kb 16:02 Discharged to home ambulatory, 16:02 Condition: stable 16:02 Discharge instructions given to patient, Instructed on discharge instructions, follow up and referral plans. medication usage, Demonstrated understanding of instructions, follow-up care, medications, 16:03 Patient left the ED. Signatures: Dispatcher [employer] EDNE Toyin Hodge, HEALTH SAFETY MANAGER-C HEALTH SAFETY MANAGER-Mylene Brar RN RN Jolanta Henderson RN RN ap3 Marquita Vargas 5
--- NOTE | 2024-03-07 15:20 | EDPHYS ---
Physician Documentation [facility] Name: Sharmaine Franklin Age: 68 yrs Sex: Female : 1955 Arrival Date: 03/07/2024 Time: 12:56 Bed 10 Private MD: ED Physician Glenn Ray HPI: 03/07 14:39 This 68 yrs old Female presents to ER via Ambulatory with complaints of Flu kb Symptoms. 14:39 Pt is a 68 year old female who presents for cough, congestion, sore throat and kb rhinorrhea that started 4 days ago. Denies fever, chest pain, shortness of breath, n/v/d. No alleviating or aggravating factors. Historical: - Allergies: 13:31 No Known Allergies; ap3 - PMHx: 13:31 Hypercholesterolemia; ap3 - PSHx: 13:31 hysterectomy; ap3 - Immunization history:: Client reports receiving the 2nd dose of the Covid vaccine, Flu vaccine is up to date. - Infectious Disease History:: Denies. - Social history:: Smoking status: Patient denies any tobacco usage or history of. ROS: 14:38 Constitutional: As per HPI kb Exam: 14:38 Constitutional: This is a well developed, well nourished patient who is awake, alert, kb and in no acute distress. Head/Face: Normocephalic, atraumatic. ENT: Moist Mucous membranes Cardiovascular: Regular rate Respiratory: Respirations even and unlabored. No increased work of breathing. Talking in full sentences Abdomen/GI: Soft, non-tender. No distention Skin: Warm, dry with normal turgor. Normal color. MS/ Extremity: Pulses equal, no cyanosis. Neurovascular intact. Full, normal range of motion. Neuro: Awake and alert, GCS 15, oriented to person, place, time, and situation. Moves all extremities. Normal gait. Vital Signs: 13:30 BP 134 / 82; Pulse 88; Resp 17; Temp 98.1; Pulse Ox 99% ; Weight 62.6 kg; Height 5 ft. ap3 2 in. ; Pain 5/10; 13:30 Body Mass Index 25.24 (62.60 kg, 157.48 cm) ap3 13:30 Pain Scale: Adult ap3 MDM: 13:08 Patient medically screened. kb 14:38 Differential diagnosis: flu, covid, uri. Data reviewed: vital signs, nurses notes. kb 15:18 Counseling: I had a detailed discussion with the patient and/or guardian regarding the kb historical points, exam findings, and any diagnostic results supporting the discharge/admit diagnosis, lab results, radiology results, the need for outpatient follow up, a family practitioner, to return to the emergency department if symptoms worsen or persist or if there are any questions or concerns that arise at home. 03/07 13:28 Order name: Flu; Complete Time: 14:27 ap3 03/07 13:28 Order name: SARS-COV-2 Antigen Rapid; Complete Time: 14:27 ap3 03/07 13:29 Order name: Chest Single View XRAY; Complete Time: 15:18 kb Administered Medications: 15:56 Drug: Dexamethasone IM 10 mg IM once Route: IM; Site: left deltoid; 16:02 Follow up: Response: Medication administered at discharge. Disposition: 16:23 Co-signature as Attending Physician, Glenn Ray MD I reviewed the patient's care rt provided by the Advanced Practice Provider and agree with the diagnosis and treatment plan. Disposition Summary: 03/07/24 15:19 Discharge Ordered Notes: Location: Home kb Condition: Stable kb Diagnosis - Acute upper respiratory infection, unspecified kb Followup: kb - With: Emergency Department - When: As needed - Reason: Worsening of condition Followup: kb - With: Private Physician - When: 2 - 3 days - Reason: Recheck today's complaints, Continuance of care, Re-evaluation by your physician Discharge Instructions: - Discharge Summary Sheet kb - Upper Respiratory Infection, Adult, [id number] kb - Viral Respiratory Infection, [id number] kb Forms: - Medication Reconciliation Form kb - Antibiotic Education kb - Prescription Opioid Use kb - Patient Portal Instructions kb - Leadership Thank You Letter kb Signatures: Dispatcher [employer] Toyin Armando FNP-C FNP-Mylene Brar, RN RN Jolanta Henderson RN RN ap3 Glenn Ray MD MD rt Corrections: (The following items were deleted from the chart) 14:40 14:39 Pt is a 68 year old female who presents for cough, congestion, sore throat and kb rhinorrhea that started 3 days ago. Denies fever. . kb
[2024-03-07] MEDS ORDERED: dexAMETHasone 10 MG/ML VIAL ONE (15:45)
[2024-03-07 16:37] VITALS: BP 134/82; TEMP 98.1; O2SAT 99
== END 2024-03-07 16:03 | disposition home or self-care (01) ==
LOC: ER 12:56
DX: J06.9 Acute upper respiratory infection, unspecified (principal); Z11.52 Encounter for screening for COVID-19
CPT/HCPCS: 36415; 87804 ×2; 71045; 96372; 99284; 87811; J1100

== ENCOUNTER 2024-08-09 11:30 | Emergency (ER) | payer OTHER ==
--- OUTSIDE RECORDS SUMMARY | 2024-08-09 11:33 | XMS REPORT | Continuity of Care Document ---
Author Name Unknown Address [address] [place] [address] [facility] Address [address] [place] [address] Care Team Providers Care Recycling Or Rubbish Collector Name Role Phone Skip MEJIAS Zay Dmitri Primary Care Physician + Zay Valdivia Attending Clinician Unavailable Selbst Marino POSADAS Attending Clinician [phone] MARINO SIFUENTES Attending Clinician Unavail able [email or web address]_S Attending Clinician Unavaila ble [email or web address]_S Admitting Clinician Unavaila ble Payers Payer Name Policy Type Policy Number Effective Date Expiration Date Source [facility] 53 [id number] 2020 00:00:00 [facility] MEDICARE PART A AND B Medicare [id number] 2024 00:00:00 [employer] S[employer] Supp [id number] 2024 00:00:00 [employer] S[employer]IOR [employer]MENT Supp [id number] 2023 00:00:00 Problems Condition Name Condition Details Condition Category Status Onset Date Resolution Date Last Treatment Date Treating Clinician Comments Source [id number] Overweight (BMI 25.0-29.9) Problem [facility] [id number] Iron deficiency anemia, unspecifie d iron deficiency anemia type Problem [facility] Pure hyperchole sterolemia Pure hyperchole sterolemia Problem [facility] [id number] Left hip pain Problem [facility] [id number] Prediabete s Problem [facility] [id number] Mixed hyperlipid emia Problem [facility] [id number] Tear of right rotator cuff, unspecifie d tear extent, unspecifie d whether traumatic Problem [facility] [id number] Insulin resistance Problem [facility] [id number] Right thigh pain Problem [facility] Allergies, Adverse Reactions, Alerts Allergy Name Allergy [...] 2023-09-29 14:29:11 Identifies as female gender (finding) [facility] History of Tobacco Use [facility] Sex Assigned At [facility] Smoking Status Start Date Stop Date Source Tobacco smoking consumption unknown [facility] c Never Smoker [facility] Medications Ordered Medication Name Filled Medication Name [...] Vaccine Comirnaty COVID 19 Vaccine Unknown Completed [facility] Arexvy Arexvy Unknown Completed [facility] Prevnar 20 (PCV20) Prevnar 20 (PCV20) Unknown Completed [facility] Fluad (aIIV4) - SDS - 0.5mL Fluad (aIIV4) - SDS - 0.5mL Unknown Completed [facility] FluAD FluAD Unknown Completed [facility] Flucelvax (ccIIV4) - SDS - 0.5mL Flucelvax (ccIIV4) - SDS - 0.5mL Unknown Completed [facility] ProQuad (MMRV) ProQuad (MMRV) [facility] Com[facility]naty COVID 19 Vaccine Unknown Completed [facility] Arexvy Arexvy Unknown Completed [facility] Prevnar 20 (PCV20) Prevnar 20 (PCV20) Unknown Completed [facility] Fluad (aIIV4) - SDS - 0.5mL Fluad (aIIV4) - SDS - 0.5mL Unknown Completed [facility] FluAD FluAD Unknown Completed [facility] Flucelvax (ccIIV4) - SDS - 0.5mL Flucelvax (ccIIV4) - SDS - 0.5mL Unknown Completed [facility] ProQuad (MMRV) ProQuad (MMRV) Unknown Completed [facility] Comirnaty COVID 19 Vaccine Comirnaty COVID 19 Vaccine Unknown Completed [facility] Arexvy Arexvy Unknown Completed [facility] Prevnar 20 (PCV20) Prevnar 20 (PCV20) Unknown Completed [facility] Fluad (aIIV4) - SDS - 0.5mL Fluad (aIIV4) - SDS - 0.5mL Unknown Completed [facility] FluAD FluAD Unknown Completed [facility] Flucelvax (ccIIV4) - SDS - 0.5mL Flucelvax (ccIIV4) - SDS - 0.5mL Unknown Completed [facility] ProQuad (MMRV) ProQuad (MMRV) [facility] COVID 19 Vaccine Unknown Completed [facility] Arexvy Arexvy Unknown Completed [facility] Prevnar 20 (PCV20) Prevnar 20 (PCV20) Unknown Completed [facility] Fluad (aIIV4) - SDS - 0.5mL Fluad (aIIV4) - SDS - 0.5mL Unknown Completed [facility] FluAD FluAD Unknown Completed [facility] Flucelvax (ccIIV4) - SDS - 0.5mL Flucelvax (ccIIV4) - SDS - 0.5mL Unknown Completed [facility] ProQuad (MMRV) ProQuad (MMRV) Unknown [facility] Comirnaty COVID 19 Vaccine Unknown Completed [facility] Arexvy Arexvy Unknown Completed [facility] Prevnar 20 (PCV20) Prevnar 20 (PCV20) Unknown Completed [facility] Fluad (aIIV4) - SDS - 0.5mL Fluad (aIIV4) - SDS - 0.5mL Unknown Completed [facility] FluAD FluAD Unknown Completed [facility] Flucelvax (ccIIV4) - SDS - 0.5mL Flucelvax (ccIIV4) - SDS - 0.5mL Unknown Completed [facility] ProQuad (MMRV) ProQuad (MMRV) Unknown Completed [facility] Comirnaty COVID 19 Vaccine Comirnaty COVID 19 Vaccine Unknown Completed [facility] Arexvy Arexvy Unknown Completed [facility] Prevnar 20 (PCV20) Prevnar 20 (PCV20) Unknown Completed [facility] Fluad (aIIV4) - SDS - 0.5mL Fluad (aIIV4) - SDS - 0.5mL Unknown Completed [facility] FluAD FluAD Unknown Completed [facility] Flucelvax (ccIIV4) - SDS - 0.5mL Flucelvax (ccIIV4) - SDS - 0.5mL Unknown Completed [facility] ProQuad (MMRV) ProQuad (MMRV) Unknown Completed [facility] Comirnaty COVID 19 Vaccine Comirnaty COVID 19 Vaccine Unknown Completed [facility] Arexvy Arexvy Unknown Completed [facility] Prevnar 20 (PCV20) Prevnar 20 (PCV20) Unknown Completed [facility] Fluad (aIIV4) - SDS - 0.5mL Fluad (aIIV4) - SDS - 0.5mL Unknown Completed [facility] FluAD FluAD Unknown Completed [facility] Flucelvax (ccIIV4) - SDS - 0.5mL Flucelvax (ccIIV4) - SDS - 0.5mL Unknown Completed [facility] ProQuad (MMRV) ProQuad (MMRV) Unknown Completed [facility] Comirnaty COVID 19 Vaccine Comirnaty COVID 19 Vaccine Unknown Completed [facility] Arexvy Arexvy Unknown Completed [facility] Prevnar 20 (PCV20) Prevnar 20 (PCV20) Unknown Completed [facility] Fluad (aIIV4) - SDS - 0.5mL Fluad (aIIV4) - SDS - 0.5mL Unknown Completed [facility] FluAD FluAD Unknown Completed [facility] Flucelvax (ccIIV4) - SDS - 0.5mL Flucelvax (ccIIV4) - SDS - 0.5mL Unknown Completed [facility] ProQuad (MMRV) ProQuad (MMRV) Unknown Completed [facility] Comirnaty COVID 19 Vaccine Comirnaty COVID 19 Vaccine Unknown Completed [facility] Arexvy Arexvy Unknown Completed [facility] Prevnar 20 (PCV20) Prevnar 20 (PCV20) Unknown Completed [facility] Fluad (aIIV4) - SDS - 0.5mL Fluad (aIIV4) - SDS - 0.5mL Unknown Completed [facility] FluAD FluAD Unknown Completed [facility] Flucelvax (ccIIV4) - SDS - 0.5mL Flucelvax (ccIIV4) - SDS - 0.5mL Unknown Completed [facility] ProQuad (MMRV) ProQuad (MMRV) Unknown Completed [facility] Vital Signs Vital Name Observation Time Observation Value Comments S ource height 2024-05-21 09:45:00 61 [in_i] Commo n [facility] weight 2024-05-21 09:45:00 136.4 [lb_av] Co mmon [facility] temperature 2024-05-21 09:45:00 97.7 [degF] Com mon [facility] bmi 2024-05-21 09:45:00 25.77 kg/m2 Comm on [facility] oximetry 2024-05-21 09:45:00 99 % Commo n [facility] blood pressure systolic 2024-05-21 09:45:00 122 mm[Hg] Common [facility] blood pressure diastolic 2024-05-21 09:45:00 74 mm[Hg] [facility] height 2024-02-04 09:15:00 61 [in_i] Commo n [facility] weight 2024-02-04 09:15:00 142 [lb_av] Comm on [facility] temperature 2024-02-04 09:15:00 98.0 [degF] Com [facility] bmi 2024-02-04 09:15:00 26.83 kg/m2 Comm on [facility] blood pressure systolic 2024-02-04 09:15:00 134 mm[Hg] [facility] blood pressure diastolic 2024-02-04 09:15:00 74 mm[Hg] Common Spiri t [facility] height 2023-12-24 10:15:00 61 [in_i] Commo n [facility] weight 2023-12-24 10:15:00 142.2 [lb_av] Co mmon [facility] temperature 2023-12-24 10:15:00 98.2 [degF] Com mon [facility] bmi 2023-12-24 10:15:00 26.87 kg/m2 Comm on [facility] blood pressure systolic 2023-12-24 10:15:00 136 mm[Hg] Common Spiri t [facility] blood pressure diastolic 2023-12-24 10:15:00 67 mm[Hg] Common [facility] height 2023-11-14 13:30:00 61 [in_i] Commo n [facility] weight 2023-11-14 13:30:00 135 [lb_av] Comm on [facility] bmi 2023-11-14 13:30:00 25.51 kg/m2 Comm on [facility] blood pressure systolic 2023-11-14 13:30:00 126 mm[Hg] Common Spiri t [facility] blood pressure diastolic 2023-11-14 13:30:00 76 mm[Hg] Common [facility] height 2023-10-03 09:00:00 61 [in_i] Commo n [facility] weight 2023-10-03 09:00:00 136 [lb_av] Comm on [facility] bmi 2023-10-03 09:00:00 25.69 kg/m2 Comm on [facility] blood pressure systolic 2023-10-03 09:00:00 126 mm[Hg] Common Spiri t [facility] blood pressure diastolic 2023-10-03 09:00:00 80 mm[Hg] Common [facility] height 2023-09-19 09:30:00 61 [in_i] Commo n [facility] weight 2023-09-19 09:30:00 136 [lb_av] Comm on [facility] bmi 2023-09-19 09:30:00 25.69 kg/m2 Comm on [facility] blood pressure systolic 2023-09-19 09:30:00 126 mm[Hg] Common [facility] blood pressure diastolic 2023-09-19 09:30:00 82 mm[Hg] Common [facility] height 2023-09-16 10:45:00 61 [in_i] Commo n [facility] weight 2023-09-16 10:45:00 136 [lb_av] Comm on [facility] temperature 2023-09-16 10:45:00 98.2 [degF] Com mon [facility] bmi 2023-09-16 10:45:00 25.69 kg/m2 Comm on [facility] blood pressure systolic 2023-09-16 10:45:00 126 mm[Hg] Common [facility] blood pressure diastolic 2023-09-16 10:45:00 82 mm[Hg] Common [facility] height 2023-09-12 08:30:00 61 [in_i] Commo n [facility] weight 2023-09-12 08:30:00 136.0 [lb_av] Co mmon [facility] temperature 2023-09-12 08:30:00 97.9 [degF] Com mon [facility] bmi 2023-09-12 08:30:00 25.69 kg/m2 Comm on [facility] oximetry 2023-09-12 08:30:00 99 % Commo n [facility] respiratory rate 2023-09-12 08:30:00 18 /min [facility] blood pressure systolic 2023-09-12 08:30:00 130 mm[Hg] Common [facility] blood pressure diastolic 2023-09-12 08:30:00 68 mm[Hg] Common [facility] height 2023-09-12 08:30:00 61 [in_i] Commo n [facility] weight 2023-09-12 08:30:00 136 [lb_av] Comm on [facility] temperature 2023-09-12 08:30:00 97.9 [degF] Com mon [facility] bmi 2023-09-12 08:30:00 25.69 kg/m2 Comm on [facility] oximetry 2023-09-12 08:30:00 99 % Commo n [facility] respiratory rate 2023-09-12 08:30:00 18 /min Common [facility] blood pressure systolic 2023-09-12 08:30:00 130 mm[Hg] Common [facility] blood pressure diastolic 2023-09-12 08:30:00 68 mm[Hg] Common [facility] Encounters Start Date/Time End Date/Time Encounter Type Admission Type Attending [facility] Facility Care Department Encounter ID Source 2024-03-13 11:57:00 Outpatient Zay Valdivia [facility] [id number] [facility] 2023-09-17 14:31:02 Outpatient Zay Valdivia [facility] [id number] [facility] 2023-09-12 08:32:01 [facility] [id number] [facility] 2024-05-21 00:00:00 2024-06-21 23:52:50 [facility] [id number] [facility] 2024-06-12 00:00:00 2024-06-12 00:00:00 (TEL) [facility] [id number] [facility] 2024-05-21 00:00:00 2024-05-21 00:00:00 OFFICE VISIT ESTAB PT LEVEL 4 [facility] [id number] [facility] 2024-05-06 00:00:00 2024-05-06 00:00:00 (TEL) [facility] [id number] [facility] 2024-04-15 14:28:15 2024-04-15 15:32:33 Outpatient Elective MARINO SIFUENTES MHEOUT MHEOUT [id number] [facility] 2024-04-15 14:30:00 2024-04-15 14:40:00 Office Visit [facility] [id number] [facility] 2024-03-18 09:45:28 2024-03-18 10:41:05 Outpatient Elective SELBST, MARINO MHEOUT MHEOUT [id number] M[facility]OUT 2024-03-18 09:40:00 2024-03-18 10:41:05 Office Visit Selbst, Marino [facility] [id number] Yelena [facility] 2024-03-10 00:00:00 2024-03-10 00:00:00 (TEL) [facility] [id number] [facility] 2024-03-04 09:40:24 2024-03-04 10:36:01 Outpatient Elective SELBST, MARINO MHEOUT MHEOUT [id number] [facility] 2024-03-04 09:40:00 2024-03-04 10:36:01 Office Visit SelbstMarino [facility] [id number] Yelena [facility] 2024-02-05 09:17:04 2024-02-05 10:51:20 Outpatient Elective SELBST, MARINO MHEOUT MHEOUT [id number] MHEOUT 2024-02-05 09:30:00 2024-02-05 09:40:00 Office Visit Selbst, Marino [facility] [id number] [id number] [facility] 2024-02-04 00:00:00 2024-02-04 00:00:00 OFFICE VISIT ESTAB PT LEVEL 3 [facility] [id number] [facility] 2024-01-22 10:08:39 2024-01-22 11:25:53 Outpatient Elective SELBST, MARINO MHEOUT MHEOUT [id number] EOUT 2024-01-22 10:00:00 2024-01-22 10:10:00 Office Visit Tyler Sifuentesjohnson Mccall [facility] [id number] [id number] [facility] 2024-01-06 11:38:21 2024-01-06 12:21:17 Outpatient Elective MARINO SIFUENTES EOUT EOUT [id number] EOUT 2024-01-06 11:10:00 2024-01-06 11:20:00 Consult Ambika [facility]ino [facility] [id number] Yelena govea [facility] 2023-12-24 00:00:00 2023-12-24 00:00:00 (PO) Post Op STLMLC STLMLC [id number] [facility] 2023-12-16 00:00:00 2023-12-16 00:00:00 (TEL) STLMLC STLMLC [id number] [facility] 2023-11-27 00:00:00 2023-11-27 00:00:00 (TEL) STLMLC STLMLC [id number] [facility] 2023-11-14 00:00:00 2023-11-14 00:00:00 NON-BILLAB LE VISIT STLMLC STLMLC [id number] [facility] 2023-10-29 00:00:00 2023-10-29 00:00:00 (TEL) STLMLC STLMLC [id number] [facility] 2023-10-03 00:00:00 2023-10-03 00:00:00 NON-BILLAB LE VISIT STLC STLMLC [id number] [facility] 2023-09-24 00:00:00 2023-09-24 00:00:00 (TEL) [facility] [id number] [facility] 2023-09-19 00:00:00 2023-09-19 00:00:00 OFFICE VISIT ESTAB PT LEVEL 4 [facility] [id number] [facility] 2023-09-16 00:00:00 2023-09-16 00:00:00 NON-BILLAB LE VISIT [facility] [id number] [facility] 2023-09-12 00:00:00 2023-09-12 00:00:00 OFFICE VISIT ESTAB PT LEVEL 4 [facility] [id number] [facility] 2023-09-12 00:00:00 2023-09-12 00:00:00 SUB ANNUAL [facility] [id number] [facility] 2023-05-03 00:00:00 2023-05-03 00:00:00 Outpatient [id number] maggie_S PRIV PRIV [id number] [facility] Medical Results Test Description Test Time Test Comments Results Result Co mments Source MRI Shoulder Rt Wo ContMRI Shoulder Rt Wo Cont
[2024-08-09 12:15] LABS: SARS-CoV-2 Antigen CONTROL BLUE LINE VIS/BG OK; SARS-CoV-2 Antigen Rapid Res Negative (Negative)
--- NOTE | 2024-08-09 12:42 | ER ---
Nurse's Notes [facility] Name: Sharmaine Franklin Age: 69 yrs Sex: Female : 1955 Arrival Date: 08/09/2024 Time: 11:30 Bed IW1 Private MD: Diagnosis: Acute laryngitis Presentation: 08/09 11:37 Chief complaint: Patient states: sore throat, cough, congestion onset . Denies cm10 fevers. Coronavirus screen: Client denies travel out of the [place] in the last 14 days. Ebola Screen: Patient denies travel to an Ebola-affected area in the 21 days before illness onset. Initial Sepsis Screen: Does the patient meet any 2 criteria? No. Patient's initial sepsis screen is negative. Does the patient have a suspected source of infection? No. Patient's initial sepsis screen is negative. Risk Assessment: Do you want to hurt yourself or someone else? Patient reports no desire to harm self or others. Onset of symptoms was August 06, 2024. 11:37 Method Of Arrival: Ambulatory cm10 11:37 Acuity: YANA 4 cm10 Triage Assessment: 11:39 General: Appears in no apparent distress. comfortable, Behavior is calm, cooperative. cm10 Pain: Complains of pain in Throat. EENT: Throat Reports pain when swallowing. Neuro: No deficits noted. Level of Consciousness is awake, alert, obeys commands, Oriented to person, place, time, situation, Appropriate for age. Respiratory: No deficits noted. Airway is patent Respiratory effort is even, unlabored, Respiratory pattern is regular, symmetrical. Musculoskeletal: No deficits noted. Range of motion: intact in all extremities. Historical: - Allergies: 11:38 No Known Allergies; cm10 - PMHx: 11:38 Hypercholesterolemia; cm10 - PSHx: 11:38 hysterectomy; cm10 - Immunization history:: Adult Immunizations up to date. - Infectious Disease History:: Denies. - Social history:: Smoking status: Patient denies any tobacco usage or history of. - Family history:: not pertinent. - Hospitalizations: : No recent hospitalization is reported. Screenin:42 [facility] ED Fall Risk Assessment (Adult) History of falling in the last 3 months, cm10 including since admission No falls in past 3 months (0 pts) Confusion or Disorientation No (0 pts) Intoxicated or Sedated No (0 pts) Impaired Gait No (0 pts) Mobility Assist Device Used No (0 pt) Altered Elimination No (0 pt) Score/Fall Risk Level 0 - 2 = Low Risk Oriented to surroundings, Maintained a safe environment, Hourly rounding (assess needs \T\ fall precautionary measures) done. Abuse screen: Denies threats or abuse. Denies injuries from another. Nutritional screening: No deficits noted. Tuberculosis screening: No symptoms or risk factors identified. Assessment: 13:17 Reassessment: Patient appears in no apparent distress at this time. Patient and/or cm10 family updated on plan of care and expected duration. Pain level reassessed. Patient is alert, oriented x 3, equal unlabored respirations, skin warm/dry/pink. Vital Signs: 11:37 BP 112 / 72; Pulse 84; Resp 15; Temp 97(TE); Pulse Ox 97% on R/A; Weight 61.23 kg; cm10 Height 5 ft. 2 in. ; Pain 5/10; 11:37 Body Mass Index 24.69 (61.23 kg, 157.48 cm) cm10 11:37 Pain Scale: Adult cm10 ED Course: 11:32 Patient arrived in ED. ra3 11:38 Triage completed. cm10 11:38 Arm band placed on right wrist. Patient placed in waiting room. cm10 11:41 Emiliano Constantino MD is Attending Physician. rn 11:42 Patient has correct armband on for positive identification. Provided Education on: ER cm10 process and procedures.. 11:42 COVID swab sent to lab. Flu and/or RSV swab sent to lab. Strep swab sent to lab. cm10 11:43 SARS RAPID Sent. cm10 11:43 Strep Sent. cm10 11:43 Flu Sent. cm10 13:18 No provider procedures requiring assistance completed. Patient did not have IV access cm10 during this emergency room visit. Administered Medications: No medications were administered Medication: 11:42 VIS not applicable for this client. cm10 Outcome: 12:42 Discharge ordered by . rn 13:17 Discharged to home ambulatory, cm10 13:17 Condition: good 13:17 Discharge instructions given to patient, Instructed on discharge instructions, follow up and referral plans. medication usage, Demonstrated understanding of instructions, follow-up care, medications, Prescriptions given X 1, 13:18 Patient left the ED. cm10 Signatures: Emiliano Constantino MD MD rn Akua Echavarria RN RN cm10 Lilo Huber ra3
--- NOTE | 2024-08-09 12:42 | EDPHYS ---
Physician Documentation [facility] Name: Sharmaine Franklin Age: 69 yrs Sex: Female : 1955 Arrival Date: 08/09/2024 Time: 11:30 Bed IW1 Private MD: ED Physician Emiliano Constantino HPI: 08/09 12:40 This 69 yrs old Female presents to ER via Ambulatory with complaints of Sore rn Throat. 12:40 The patient presents with sore throat. The patient describes throat pain as raw. rn 12:40 Onset: The symptoms/episode began/occurred 3 day(s) ago. Severity of symptoms: At their rn worst the symptoms were mild, in the emergency department the symptoms are unchanged. Modifying factors: The symptoms are alleviated by nothing, the symptoms are aggravated by swallowing. The patient has not experienced similar symptoms in the past. Historical: - Allergies: 11:38 No Known Allergies; cm10 - PMHx: 11:38 Hypercholesterolemia; cm10 - PSHx: 11:38 hysterectomy; cm10 - Immunization history:: Adult Immunizations up to date. - Infectious Disease History:: Denies. - Social history:: Smoking status: Patient denies any tobacco usage or history of. - Family history:: not pertinent. - Hospitalizations: : No recent hospitalization is reported. ROS: 12:40 Constitutional: Positive for subjective fever and chills ENT: Positive for sore throat rn Respiratory: Negative for shortness of breath, cough, wheezing, and pleuritic chest pain, Neuro: Negative for headache, weakness, numbness, tingling, and seizure, Exam: 12:40 Constitutional: This is a well developed, well nourished patient who is awake, alert, rn and in no acute distress. ENT: Pharyngeal erythema, no stridor Respiratory: No increased work of breathing, no retractions or nasal flaring. Vital Signs: 11:37 BP 112 / 72; Pulse 84; Resp 15; Temp 97(TE); Pulse Ox 97% on R/A; Weight 61.23 kg; cm10 Height 5 ft. 2 in. ; Pain 5/10; 11:37 Body Mass Index 24.69 (61.23 kg, 157.48 cm) cm10 11:37 Pain Scale: Adult cm10 MDM: 11:41 Medical Screening Exam initiated rn 12:40 Differential diagnosis: group A strep tonsillitis, laryngitis, pharyngitis, viral rn syndrome. Data reviewed: vital signs, nurses notes, lab test result(s), and as a result, I will discharge patient. Counseling: I had a detailed discussion with the patient and/or guardian regarding the historical points, exam findings, and any diagnostic results supporting the discharge/admit diagnosis, lab results, the need for outpatient follow up, to return to the emergency department if symptoms worsen or persist or if there are any questions or concerns that arise at home. Special discussion: I discussed with the patient/guardian in detail that at this point there is no indication for admission to the hospital. It is understood, however, that if the symptoms persist or worsen the patient needs to return immediately for re-evaluation. 08/09 11:37 Order name: Flu; Complete Time: 12:40 cm10 08/09 11:37 Order name: Strep cm10 08/09 11:37 Order name: SARS RAPID; Complete Time: 12:40 cm10 08/09 12:19 Order name: Throat Culture EDMS Administered Medications: No medications were administered Disposition Summary: 08/09/24 12:42 Discharge Ordered Notes: Location: Home rn Problem: new rn Symptoms: have improved rn Condition: Stable rn Diagnosis - Acute laryngitis rn Followup: rn - With: Private Physician - When: As needed - Reason: Recheck today's complaints, Re-evaluation by your physician Discharge Instructions: - Discharge Summary Sheet rn - Laryngitis rn Forms: - Medication Reconciliation Form rn - Antibiotic agronomy internship - Prescription Opioid Use rn - Patient Portal Instructions rn - Leadership Thank You Letter rn Prescriptions: - Augmentin 875-125 mg Oral Tablet - take 1 tablet ORAL route every 12 hours for 10 days; 20 tablet; Refills: 0, rn Product Selection Permitted Signatures: Dispatcher [employer] EDMS Emiliano Constantino MD MD rn Martinez, Clarissa, RN RN 10
[2024-08-09 13:22] VITALS: BP 112/72; TEMP 97; O2SAT 97
== END 2024-08-09 13:18 | disposition home or self-care (01) ==
LOC: ER 11:30
DX: J04.0 Acute laryngitis (principal); Z11.52 Encounter for screening for COVID-19
CPT/HCPCS: 36415; 87070; 87081; 87804; 87811; 99283